=== PATIENT | male | born 1965 | race Caucasian/White ===

== ENCOUNTER → 2016-05-09 | Outpatient (CLI) | payer MEDICAID ==
--- NOTE | 2016-05-20 19:14 | ECHO ---
The echocardiogram report can be seen in this patient's EMR in the Reports section. [email or web address]
== END ==
LOC: MW.US 12:30
PROVIDERS: ATTEND Internal Medicine
DX: I48.91 Unspecified atrial fibrillation (principal)
CPT/HCPCS: 93306

== ENCOUNTER 2016-05-10 08:38 | Emergency (ER) | payer MEDICAID, OTHER ==
--- NOTE | 2016-05-10 08:56 | EDM.PDOC ---
ED HPI Trauma - General Chief Complaint: Lower Extremity Injury/Pain Stated Complaint: TWISTED RIGHT ANKLE Time Seen by Provider: 05/10/16 08:40 Source: Reports: Patient History Limitations: Reports: No limitations - History of Present Illness INITIAL COMMENTS - FREE TEXT/NARRATIVE: History of present illness: [] Patient twisted his right ankle 3 days ago with swelling, pain is not improving. Review of systems: As per history of present illness and below otherwise all systems reviewed and negative. Past medical history: As per history of present illness and as reviewed below otherwise noncontributory. Surgical history: As per history of present illness and as reviewed below otherwise noncontributory. Social history: No reported history of drug or alcohol abuse. Family history: As per history of present illness and as reviewed below otherwise noncontributory. Physical exam: General: Well developed, well nourished in NAD HEENT: Right ankle swelling and tenderness to palpation diffusely mostly lateral , normocephalic, pupils reactive, negative for conjunctival pallor or scleral icterus, mucous membranes moist, throat clear, neck supple, nontender, trachea midline. Lungs: Clear to auscultation, breath sounds equal bilaterally, chest nontender. Heart: S1S2, regular, negative for clicks, rubs, or JVD. Abdomen: Soft, nondistended, nontender. Negative for masses or hepatosplenomegaly. Negative for costovertebral tenderness. Pelvis: Stable nontender. Genitourinary: Deferred. Rectal: Deferred. Extremities: Atraumatic, negative for cords or calf pain. Neurovascular unremarkable. Neuro: Awake, alert, oriented. Cranial nerves II through XII unremarkable. Cerebellum unremarkable. Motor and sensory unremarkable throughout. Exam nonfocal. Diagnostics: [] X-ray shows no fracture Therapeutics: [] Impression: [] Right Ankle sprain Plan: [] Ice elevate followup with [facility] 2-3 weeks Motrin for pain tramadol for severe pain Definitive disposition and diagnosis as appropriate pending reevaluation and review of above. Allergies/ADRs: Allergies No Known Allergies Allergy (Verified 05/10/16 08:53) Home Medications: Ambulatory Orders Aspirin 81 mg PO DAILY 04/19/16 [Confirmed 05/10/16] Enoxaparin [Lovenox] 100 mg SQ BID 04/19/16 [Confirmed 05/10/16] Metoprolol Tartrate [Lopressor] 100 mg PO BID 04/19/16 [Confirmed 05/10/16] Thiamine Mononitrate [Vitamin B-1] 100 mg PO DAILY 04/19/16 [Confirmed 05/10/16] traMADol [Ultram] 50 mg PO Q8H PRN #12 tablet 05/10/16 Past Medical History HEENT History: Reports: None Cardiovascular History: Reports: Afib, Blood clots/VTE/DVT Respiratory History: Reports: Other (see below) Other Respiratory History: thinks he has Asthma Gastrointestinal History: Reports: None Genitourinary History: Reports: None Musculoskeletal History: Reports: None Neurological History: Reports: None Psychiatric History: Reports: None Endocrine/Metabolic History: Reports: None Hematologic History: Reports: None Immunologic History: Reports: None Oncologic (Cancer) History: Reports: None Dermatologic History: Reports: None - Infectious Disease History Infectious Disease History: Reports: None - Past Surgical History HEENT Surgical History: Reports: Other (see below) Other HEENT Surgeries/Procedures: facial reconstructive surgery 2006 Cardiovascular Surgical History: Reports: None Social & Family History - Family History Family Medical History: Noncontributory - Tobacco Use Smoking Status *Q: Current Every Day Smoker Years of Tobacco use: 21 Packs/Tins Daily: 0.4 Used Tobacco, but Quit: No Second Hand Smoke Exposure: Yes - Caffeine Use Caffeine Use: Reports: Coffee - Alcohol Use Days Per Week of Alcohol Use: 5 Number of Drinks Per Day: 4 Total Drinks Per Week: 20 - Recreational Drug Use Recreational Drug Use: No Review of Systems - Review of Systems Review Of Systems: See Below (See history of present illness) Trauma Exam - Physical Exam Exam: See Below (See history of present illness) Course - Vital Signs Last Recorded V/S: Last Vital Signs Temp 36.6 C 05/10/16 08:51 Pulse 88 05/10/16 08:51 Resp 16 05/10/16 08:51 BP 128/94 H 05/10/16 08:51 Pulse Ox 98 05/10/16 08:51 - Orders/Labs/Meds Orders: Active Orders 24 hr Category Date Time Status Orthopedic Device Education [RC] Click To Edit Care 05/10/16 09:42 Ordered Ankle Min 3V Rt [CR] Stat Exams 05/10/16 08:51 Taken Departure - Departure Time of Disposition: 09:47 Disposition: Home, Self-Care 01 Condition: good Clinical Impression: Right ankle sprain Qualifiers: Encounter type: initial encounter Involved ligament of ankle: unspecified ligament Qualified Code(s): S93.401A - Sprain of unspecified ligament of right ankle, initial encounter Prescriptions: traMADol [Ultram] 50 mg PO Q8H PRN #12 tablet PRN Reason: Pain Referrals: PCP,None [Primary Care Provider] - Forms: ED Department Discharge Additional Instructions: The following information is given to patients seen in the emergency department who are being discharged to home. This information is to outline your options for follow-up care. We provide all patients seen in our emergency department with a follow-up referral. The need for follow-up, as well as the timing and circumstances, are variable depending upon the specifics of your emergency department visit. If you don't have a primary care physician on staff, we will provide you with a referral. We always advise you to contact your personal physician following an emergency department visit to inform them of the circumstance of the visit and for follow-up with them and/or the need for any referrals to a consulting specialist. The emergency department will also refer you to a specialist when appropriate. This referral assures that you have the opportunity for follow-up care with a specialist. All of these measure are taken in an effort to provide you with optimal care, which includes your follow-up. Under all circumstances we always encourage you to contact your private physician who remains a resource for coordinating your care. When calling for follow-up care, please make the office aware that this follow-up is from your recent emergency room visit. If for any reason you are refused follow-up, please contact the [facility] Emergency Department at and asked to speak to the emergency department charge nurse. Tramadol 50 mg q. 812 tablets no refills Ice elevate Motrin for pain [facility] [address] [place] [id number] - My Orders Last 24 Hours: My Active Orders 05/10/16 08:51 Ankle Min 3V Rt [CR] Stat 05/10/16 09:42 Orthopedic Device Education [RC] Click To Edit - Assessment/Plan Last 24 Hours: My Active Orders 05/10/16 08:51 Ankle Min 3V Rt [CR] Stat 05/10/16 09:42 Orthopedic Device Education [RC] Click To Edit
[2016-05-10 10:54] VITALS: BP 124/72
--- NOTE | 2016-05-12 19:59 | CR ---
EXAM DATE: 05/10/16 PATIENT'S AGE: 50 Patient: LILA GUERRA Facility: [place], [place] Site . Site : [id number] Study: XRay Extremity Right [id number]/11/2017 9:19:55 AM Ordering Physician: Morris Mtz Final Report: Indication: Right ankle twisting injury. Technique: Three views of the right ankle. Comparison: None. Findings: Mild generalized soft tissue swelling, greatest laterally. No fracture or other abnormality. Impression: Right ankle sprain. Dictated by Ammon Griffiths MD @ May 10 2016 9:23AM (Electronic Signature) Report Signed by Proxy and Original Signed Document filed in the Medical Record. [facility]
== END 2016-05-10 09:56 | disposition home or self-care (01) ==
LOC: MW.ED 08:38
DX: S93.401A Sprain of unspecified ligament of right ankle, initial encounter (principal); I48.91 Unspecified atrial fibrillation; F17.210 Nicotine dependence, cigarettes, uncomplicated; X50.1XXA Overexertion from prolonged static or awkward postures, initial encounter
CPT/HCPCS: 73610-26-RT; 73610-RT; 99283

== ENCOUNTER 2016-05-20 12:09 | Emergency (ER) | payer MEDICAID, OTHER ==
[2016-05-20] MEDS ORDERED: Sodium Chloride 0.9% 2.5 ML Syringe FLUSH PRN (12:42)
[2016-05-20] MEDS ORDERED: Sodium Chloride 0.9% 10 ML Syringe FLUSH PRN (12:42)
[2016-05-20] MEDS ORDERED: Aspirin 81 MG Tab.Chew PO ONE (12:42)
[2016-05-20] MEDS ORDERED: Metoprolol Tartrate 5 MG/5 ML SDV IVPUSH ONE (12:42)
--- NOTE | 2016-05-20 12:44 | EDM.PDOC ---
ED HPI GENERAL MEDICAL PROBLEM - General Stated Complaint: HEART COMPLICATIONS Time Seen by Provider: 05/20/16 12:35 - History of Present Illness INITIAL COMMENTS - FREE TEXT/NARRATIVE: HISTORY AND PHYSICAL: History of present illness: The patient is a 50-year-old male with a history of A. fib since 1999 and is currently being followed by our operations management professionals who also has a history of DVTs and is on Lovenox as well as metoprolol; the patient presents today because over the last day or so he has been having episodes of racing heart rate without chest pain shortness of breath diaphoresis or dizziness. According to the patient he was treated for his DVT in [place] and is currently on Lovenox and plans to switch to Xarelto going forward but he has to do a surgery for a lesion on his: so they were holding off doing that until after the procedure. He states compliance with his Lovenox as well as with his metoprolol and he says he has had episodes of A. fib with RVR in the past but never to this intensity. He has not had it recently until the last couple of days. He says that nothing particular triggers and he has had no fever chills upper respiratory symptoms and is eating and drinking normally. The patient has an appointment tomorrow with a operations management professionals here but he was concerned about the episodes of rapid heart rate. He says at home it we get up to 140. Review of systems: As per history of present illness and below otherwise all systems reviewed and negative. Past medical history: As per history of present illness and as reviewed below otherwise noncontributory. Surgical history: As per history of present illness and as reviewed below otherwise noncontributory. Social history: No reported history of drug or alcohol abuse. Family history: As per history of present illness and as reviewed below otherwise noncontributory. Physical exam: General: Well-developed well-nourished man who is nontoxic vital signs of been reviewed by me. His heart rate is variable ranging anywhere from the 70s up to 110s on my evaluation HEENT: Atraumatic, normocephalic, pupils reactive, negative for conjunctival pallor or scleral icterus, mucous membranes moist, throat clear, neck supple, nontender, trachea midline. Lungs: Clear to auscultation, breath sounds equal bilaterally, chest nontender. Heart: S1S2, variable rate and irregularly irregular rhythm, negative for clicks , rubs, or JVD. Abdomen: Soft, nondistended, nontender. Negative for masses or hepatosplenomegaly. Negative for costovertebral tenderness. Pelvis: Stable nontender. Genitourinary: Deferred. Rectal: Deferred. Extremities: Atraumatic, negative for cords or calf pain. Neurovascular unremarkable. No pedal edema or leg asymmetry Neuro: Awake, alert, oriented. Cranial nerves II through XII unremarkable. Cerebellum unremarkable. Motor and sensory unremarkable throughout. Exam nonfocal. Diagnostics: EKG CBC CMP chest x-ray troponin INR Therapeutics: IV O2 monitor aspirin Lopressor magnesium 1410: Dr Holloway in the ER and has seen EKGs and is evaluating the patient for disposition. 1420: Dr Holloway has recommended that he increase his metoprolol to 3 times a day and he will see him tomorrow in the clinic. He agrees with IV magnesium and discharge home Impression: Palpitations, A. fib with RVR history of same; mild hypomagnesemia Definitive disposition and diagnosis as appropriate pending reevaluation and review of above. - Related Data Allergies Allergy/AdvReac Type Severity Reaction Status Date / Time No Known Allergies Allergy Verified 05/20/16 13:06 Home Meds: Home Meds Aspirin 81 mg PO DAILY 04/19/16 [History] Enoxaparin [Lovenox] 100 mg SQ BID 04/19/16 [History] Metoprolol Tartrate [Lopressor] 100 mg PO BID 04/19/16 [History] Past Medical History HEENT History: Reports: None Cardiovascular History: Reports: Afib, Blood clots/VTE/DVT Respiratory History: Reports: Other (see below) Other Respiratory History: thinks he has Asthma Gastrointestinal History: Reports: None Genitourinary History: Reports: None Musculoskeletal History: Reports: None Neurological History: Reports: None Psychiatric History: Reports: None Endocrine/Metabolic History: Reports: None Hematologic History: Reports: None Immunologic History: Reports: None Oncologic (Cancer) History: Reports: None Dermatologic History: Reports: None - Infectious Disease History Infectious Disease History: Reports: None - Past Surgical History HEENT Surgical History: Reports: Other (see below) Other HEENT Surgeries/Procedures: facial reconstructive surgery 2006 Cardiovascular Surgical History: Reports: None Social & Family History - Family History Family Medical History: Noncontributory - Tobacco Use Smoking Status *Q: Current Every Day Smoker Years of Tobacco use: 21 Packs/Tins Daily: 0.4 Used Tobacco, but Quit: No Second Hand Smoke Exposure: Yes - Caffeine Use Caffeine Use: Reports: Coffee - Alcohol Use Days Per Week of Alcohol Use: 5 Number of Drinks Per Day: 4 Total Drinks Per Week: 20 - Recreational Drug Use Recreational Drug Use: No ED ROS GENERAL - Review of Systems Review Of Systems: ROS reveals no pertinent complaints other than HPI. ED EXAM, GENERAL - Physical Exam Exam: See Below (see dictation) Course - Vital Signs Last Recorded V/S: Last Vital Signs Temp 36.8 C 05/20/16 14:02 Pulse 118 H 05/20/16 14:02 Resp 16 05/20/16 14:02 BP 132/95 H 05/20/16 14:02 Pulse Ox 98 05/20/16 14:02 - Orders/Labs/Meds Orders: Active Orders 24 hr Category Date Time Status Cardiac Monitoring [RC] . DIRECTED Care 05/20/16 12:42 Active EKG Documentation Completion [RC] STAT Care 05/20/16 12:42 Active Oxygen Therapy, ED [RC] ASDIRECTED Care 05/20/16 12:42 Active Pulse Oximetry [RC] ASDIRECTED Care 05/20/16 12:42 Active Magnesium Sulfate [Magnesium Sulfate 50%] 1 gm Med 05/20/16 14:15 Active Sodium Chloride 0.9% [Normal Saline] 50 ml IV ONETIME Sodium Chloride 0.9% [Saline Flush] Med 05/20/16 12:42 Active 10 ml FLUSH ASDIRECTED PRN Sodium Chloride 0.9% [Saline Flush] Med 05/20/16 12:42 Active 2.5 ml FLUSH ASDIRECTED PRN Saline Lock Insert [OM.PC] Stat Oth 05/20/16 12:42 Ordered Medication Orders Magnesium Sulfate 1 gm/ Sodium (Chloride) 52 mls @ 104 mls/hr IV ONETIME ONE Stop: 05/20/16 14:44 Last Admin: 05/20/16 14:23 Dose: 104 mls/hr Sodium Chloride (Saline Flush) 10 ml FLUSH ASDIRECTED PRN PRN Reason: Keep Vein Open Last Admin: 05/20/16 12:56 Dose: 10 ml Sodium Chloride (Saline Flush) 2.5 ml FLUSH ASDIRECTED PRN PRN Reason: Keep Vein Open Last Admin: 05/20/16 12:56 Dose: 2.5 ml Labs: Laboratory Tests 05/20/16 05/20/16 05/20/16 Range/Units 12:31 12:31 12:31 WBC 7.33 (4.0-11.0) K/uL RBC 3.40 L (4.50-5.90) M/uL Hgb 11.4 L (13.0-17.0) g/dL Hct 34.0 L (38.0-50.0) % MCV 100.0 H (80.0-98.0) fL MCH 33.5 H (27.0-32.0) pg MCHC 33.5 (31.0-37.0) g/dL RDW Std Deviation 47.0 (28.0-62.0) fl RDW Coeff of Jamel 13 (11.0-15.0) % Plt Count 248 (150-400) K/uL MPV 8.40 (7.40-12.00) fL Neut % (Auto) 71.2 (48.0-80.0) % Lymph % (Auto) 20.2 (16.0-40.0) % Ogle % (Auto) 7.8 (0.0-15.0) % Eos % (Auto) 0.5 (0.0-7.0) % Baso % (Auto) 0.3 (0.0-1.5) % Neut # 5.2 (1.4-5.7) K/uL Lymph # 1.5 (0.6-2.4) K/uL Ogle # 0.6 (0.0-0.8) K/uL Eos # 0.0 (0.0-0.7) K/uL Baso # 0.0 (0.0-0.1) K/uL Nucleated RBC % 0.0 /100WBC Nucleated RBCs # 0 K/uL INR 1.17 H (0.86-1.11) Sodium 145 (136-146) mmol/L Potassium 3.8 (3.5-5.1) mmol/L Chloride 111 H (98-110) mmol/L Carbon Dioxide 27 (21-31) mmol/L BUN 8 (6.0-23.0) mg/dL Creatinine 0.8 (0.6-1.5) mg/dL Est Cr Clr Drug Dosing 114.06 mL/min Estimated GFR (MDRD) > 60.0 ml/min Glucose 107 (60-110) mg/dL Calcium 8.1 L (8.8-10.8) mg/dL Magnesium (1.5-2.3) mEq/L Total Bilirubin 0.4 (0.1-1.5) mg/dL AST 35 (5-40) IU/L ALT 32 (8-54) IU/L Alkaline Phosphatase 73 (40-150) Troponin I (0.0-0.29) NG/ML Total Protein 5.9 L (6.0-8.0) g/dL Albumin 3.2 L (3.5-5.0) g/dL Globulin 2.7 (2.0-3.5) g/dL Albumin/Globulin Ratio 1.2 L (1.3-2.8) 05/20/16 05/20/16 Range/Units 12:31 12:54 WBC (4.0-11.0) K/uL RBC (4.50-5.90) M/uL Hgb (13.0-17.0) g/dL Hct (38.0-50.0) % MCV (80.0-98.0) fL MCH (27.0-32.0) pg MCHC (31.0-37.0) g/dL RDW Std Deviation (28.0-62.0) fl RDW Coeff of Jamel (11.0-15.0) % Plt Count (150-400) K/uL MPV (7.40-12.00) fL Neut % (Auto) (48.0-80.0) % Lymph % (Auto) (16.0-40.0) % Ogle % (Auto) (0.0-15.0) % Eos % (Auto) (0.0-7.0) % Baso % (Auto) (0.0-1.5) % Neut # (1.4-5.7) K/uL Lymph # (0.6-2.4) K/uL Ogle # (0.0-0.8) K/uL Eos # (0.0-0.7) K/uL Baso # (0.0-0.1) K/uL Nucleated RBC % /100WBC Nucleated RBCs # K/uL INR (0.86-1.11) Sodium (136-146) mmol/L Potassium (3.5-5.1) mmol/L Chloride (98-110) mmol/L Carbon Dioxide (21-31) mmol/L BUN (6.0-23.0) mg/dL Creatinine (0.6-1.5) mg/dL Est Cr Clr Drug Dosing mL/min Estimated GFR (MDRD) ml/min Glucose (60-110) mg/dL Calcium (8.8-10.8) mg/dL Magnesium 1.3 L (1.5-2.3) mEq/L Total Bilirubin (0.1-1.5) mg/dL AST (5-40) IU/L ALT (8-54) IU/L Alkaline Phosphatase (40-150) Troponin I < 0.10 (0.0-0.29) NG/ML Total Protein (6.0-8.0) g/dL Albumin (3.5-5.0) g/dL Globulin (2.0-3.5) g/dL Albumin/Globulin Ratio (1.3-2.8) Meds: Medications Generic Name Dose Route Start Last Admin Trade Name Freq PRN Reason Stop Dose Admin Magnesium Sulfate 1 gm/ Sodium 52 mls @ 104 mls/hr 05/20/16 14:15 05/20/16 14 :23 Chloride IV 05/20/16 14:44 104 mls/hr ONETIME ONE Administration Sodium Chloride 10 ml 05/20/16 12:42 05/20/16 12:56 Saline Flush FLUSH 10 ml ASDIRECTED PRN Administration Keep Vein Open Sodium Chloride 2.5 ml 05/20/16 12:42 05/20/16 12:56 Saline Flush FLUSH 2.5 ml ASDIRECTED PRN Administration Keep Vein Open Discontinued Medications Generic Name Dose Route Start Last Admin Trade Name Freq PRN Reason Stop Dose Admin Aspirin 324 mg 05/20/16 12:42 05/20/16 12:55 Aspirin PO 05/20/16 12:43 324 mg ONETIME ONE Administration Magnesium Sulfate 1 gm/ Sodium 52 mls @ 104 mls/hr 05/20/16 14:15 Chloride IV 05/20/16 14:44 ONETIME ONE Magnesium Sulfate 1 gm 05/20/16 13:50 Magnesium Sulfate 50% IV 05/20/16 13:51 ONETIME ONE Magnesium Sulfate 1 gm 05/20/16 14:00 Magnesium Sulfate 50% IV 05/20/16 14:01 ONETIME ONE Metoprolol Tartrate 5 mg 05/20/16 12:42 05/20/16 12:56 Lopressor IVPUSH 05/20/16 12:43 5 mg ONETIME ONE Administration Departure - Departure Time of Disposition: 14:31 Disposition: Home, Self-Care 01 Condition: good Clinical Impression: Atrial fibrillation Qualifiers: Atrial fibrillation type: unspecified Qualified Code(s): I48.91 - Unspecified atrial fibrillation Referrals: PCP,None [Primary Care Provider] - Additional Instructions: The following information is given to patients seen in the emergency department who are being discharged to home. This information is to outline your options for follow-up care. We provide all patients seen in our emergency department with a follow-up referral. The need for follow-up, as well as the timing and circumstances, are variable depending upon the specifics of your emergency department visit. If you don't have a primary care physician on staff, we will provide you with a referral. We always advise you to contact your personal physician following an emergency department visit to inform them of the circumstance of the visit and for follow-up with them and/or the need for any referrals to a consulting specialist. The emergency department will also refer you to a specialist when appropriate. This referral assures that you have the opportunity for followup care with a specialist. All of these measure are taken in an effort to provide you with optimal care, which includes your followup. Under all circumstances we always encourage you to contact your private physician who remains a resource for coordinating your care. When calling for followup care, please make the office aware that this follow-up is from your recent emergency room visit. If for any reason you are refused follow-up, please contact the [facility] emergency department at and ask to speak to the emergency department charge nurse. [facility] Primary care- [place] [address] Please keep your appointment tomorrow with a operations management professionals Dr. Jose; increased her metoprolol 2 times a day to 3 times a day and return to ER as needed and as discussed. - My Orders Last 24 Hours: My Active Orders 05/20/16 12:42 Cardiac Monitoring [RC] . DIRECTED EKG Documentation Completion [RC] STAT Oxygen Therapy, ED [RC] ASDIRECTED Pulse Oximetry [RC] ASDIRECTED Sodium Chloride 0.9% [Saline Flush] 10 ml FLUSH ASDIRECTED PRN Sodium Chloride 0.9% [Saline Flush] 2.5 ml FLUSH ASDIRECTED PRN Saline Lock Insert [OM.PC] Stat 05/20/16 14:15 Magnesium Sulfate [Magnesium Sulfate 50%] 1 gm Sodium Chloride 0.9% [Normal Saline] 50 ml IV ONETIME - Assessment/Plan Last 24 Hours: My Active Orders 05/20/16 12:42 Cardiac Monitoring [RC] . DIRECTED EKG Documentation Completion [RC] STAT Oxygen Therapy, ED [RC] ASDIRECTED Pulse Oximetry [RC] ASDIRECTED Sodium Chloride 0.9% [Saline Flush] 10 ml FLUSH ASDIRECTED PRN Sodium Chloride 0.9% [Saline Flush] 2.5 ml FLUSH ASDIRECTED PRN Saline Lock Insert [OM.PC] Stat 05/20/16 14:15 Magnesium Sulfate [Magnesium Sulfate 50%] 1 gm Sodium Chloride 0.9% [Normal Saline] 50 ml IV ONETIME
[2016-05-20 13:25] LABS: CHLORIDE,CL 111 mmol/L (98-110); SODIUM,NA 145 mmol/L (136-146)
--- NOTE | 2016-05-20 13:35 | CR ---
EXAMINATION: Portable chest radiograph. HISTORY: Shortness of breath. FINDINGS: The trachea is midline. The cardiomediastinal silhouette is within normal limits. No pulmonary infil trates, effusions or pneumothorax. Osseous structures appear unremarkable. IMPRESSION: No acute cardiopulmonary process.
[2016-05-20] MEDS ORDERED: Magnesium Sulfate (4.06 MEQ/ML) 1 GM/2 ML SDV IV ONE ×2 (13:50→14:00)
[2016-05-20 19:33] VITALS: BP 140/90
== END 2016-05-20 15:06 | disposition home or self-care (01) ==
LOC: MW.ED 12:09
DX: I48.91 Unspecified atrial fibrillation (principal); E83.42 Hypomagnesemia; F17.210 Nicotine dependence, cigarettes, uncomplicated; Z79.82 Long term (current) use of aspirin; Z79.899 Other long term (current) drug therapy
CPT/HCPCS: 71010; 80053; 83735; 84484; 85025; 85610; 93005; 96365; 96375; 99285; A9270; J3475; J7050; 99284

== ENCOUNTER 2016-05-30 08:10 | Observation (INO) | payer MEDICAID ==
[2016-05-30] MEDS ORDERED: Diltiazem 25 MG/5 ML SDV IVPUSH ONE ×3 (08:20→16:57)
--- NOTE | 2016-05-30 08:23 | EDM.PDOC ---
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 He missed two doses of lopressor yesteday and he did not take lovenox once yesterday. He is experiencing chest discomfort today. He has been having diarhea x 1 week. He does not have fever, chills, n/v, abdominal pain, back pain or other symptoms. He has a history of DVT and PE. He is a daily smoker. Review of systems: As per history of present illness and below otherwise all systems reviewed and negative. Past medical history: As per history of present illness and as reviewed below otherwise noncontributory. Surgical history: As per history of present illness and as reviewed below otherwise noncontributory. Social history: No reported history of drug or alcohol abuse. Family history: As per history of present illness and as reviewed below otherwise noncontributory. Physical exam: General: Well developed, well nourished in NAD HEENT: Atraumatic, normocephalic, pupils reactive, negative for conjunctival pallor or scleral icterus, mucous membranes moist, throat clear, neck supple, nontender, trachea midline. Lungs: Clear to auscultation, breath sounds equal bilaterally, chest nontender. Heart: S1S2, irrregular, negative for clicks, rubs, or JVD. Abdomen: Soft, nondistended, nontender. Negative for masses or hepatosplenomegaly. Negative for costovertebral tenderness. Pelvis: Stable nontender. Genitourinary: Deferred. Rectal: Deferred. Extremities: Atraumatic, negative for cords or calf pain. Neurovascular unremarkable. Neuro: Awake, alert, oriented. Cranial nerves II through XII unremarkable. Cerebellum unremarkable. Motor and sensory unremarkable throughout. Exam nonfocal. Diagnostics: [EKG: atrial fib at rate 160's] Therapeutics: [IVP diltiazem 25 x 1, KCL po 40 meq x1] Impression: [Atrial fib with RVR atypical chest pain] Plan: [admit for observation: Dr. Villatoro accepted the patient.] Definitive disposition and diagnosis as appropriate pending reevaluation and review of above. - Related Data Allergies/ADRs: Allergies Allergy/AdvReac Type Severity Reaction Status Date / Time No Known Allergies Allergy Verified 05/30/16 08:16 Home Meds: Home Meds Aspirin 81 mg PO DAILY 04/19/16 [History] Enoxaparin [Lovenox] 100 mg SQ BID 04/19/16 [History] Metoprolol Tartrate [Lopressor] 100 mg PO TID 04/19/16 [History] Past Medical History HEENT History: Reports: None Cardiovascular History: Reports: Afib, Blood clots/VTE/DVT Respiratory History: Reports: Other (see below) Other Respiratory History: thinks he has Asthma Gastrointestinal History: Reports: None Genitourinary History: Reports: None Musculoskeletal History: Reports: None Neurological History: Reports: None Psychiatric History: Reports: None Endocrine/Metabolic History: Reports: None Hematologic History: Reports: None Immunologic History: Reports: None Oncologic (Cancer) History: Reports: None Dermatologic History: Reports: None - Infectious Disease History Infectious Disease History: Reports: None - Past Surgical History HEENT Surgical History: Reports: Other (see below) Other HEENT Surgeries/Procedures: facial reconstructive surgery 2006 Cardiovascular Surgical History: Reports: None Social & Family History - Family History Family Medical History: Noncontributory - Tobacco Use Smoking Status *Q: Current Every Day Smoker Years of Tobacco use: 21 Packs/Tins Daily: 0.4 Used Tobacco, but Quit: No Second Hand Smoke Exposure: Yes - Caffeine Use Caffeine Use: Reports: Coffee - Alcohol Use Days Per Week of Alcohol Use: 5 Number of Drinks Per Day: 4 Total Drinks Per Week: 20 - Recreational Drug Use Recreational Drug Use: No ED ROS GENERAL - Review of Systems Review Of Systems: See Below (History of present illness) ED EXAM, GENERAL - Physical Exam Exam: See Below (The history of present illness) Course - Vital Signs Last Recorded V/S: Last Vital Signs Temp 98.3 F 05/30/16 08:17 Pulse 105 H 05/30/16 08:34 Resp 16 05/30/16 08:34 BP 154/98 H 05/30/16 08:34 Pulse Ox 98 05/30/16 08:34 - Orders/Labs/Meds Orders: Active Orders 24 hr Category Date Time Status EKG Documentation Completion [RC] STAT Care 05/30/16 08:15 Active Oxygen Therapy [RC] ASDIRECTED Care 05/30/16 08:15 Active Labs: Laboratory Tests 05/30/16 05/30/16 05/30/16 Range/Units 08:29 08:29 08:29 WBC 7.70 (4.0-11.0) K/uL RBC 3.64 L (4.50-5.90) M/uL Hgb 12.2 L (13.0-17.0) g/dL Hct 36.6 L (38.0-50.0) % MCV 100.5 H (80.0-98.0) fL MCH 33.5 H (27.0-32.0) pg MCHC 33.3 (31.0-37.0) g/dL RDW Std Deviation 50.6 (28.0-62.0) fl RDW Coeff of Jamel 14 (11.0-15.0) % Plt Count 195 (150-400) K/uL MPV 8.80 (7.40-12.00) fL Neut % (Auto) 68.4 (48.0-80.0) % Lymph % (Auto) 23.1 (16.0-40.0) % Piute % (Auto) 8.1 (0.0-15.0) % Eos % (Auto) 0.3 (0.0-7.0) % Baso % (Auto) 0.1 (0.0-1.5) % Neut # (Auto) 5.3 (1.4-5.7) K/uL Lymph # (Auto) 1.8 (0.6-2.4) K/uL Piute # (Auto) 0.6 (0.0-0.8) K/uL Eos # (Auto) 0.0 (0.0-0.7) K/uL Baso # (Auto) 0.0 (0.0-0.1) K/uL Nucleated RBC % 0.0 /100WBC Nucleated RBCs # 0 K/uL Sodium 146 (136-146) mmol/L Potassium 3.1 L (3.5-5.1) mmol/L Chloride 113 H (98-110) mmol/L Carbon Dioxide 19 L (21-31) mmol/L BUN 9 (6.0-23.0) mg/dL Creatinine 0.8 (0.6-1.5) mg/dL Est Cr Clr Drug Dosing 121.25 mL/min Estimated GFR (MDRD) > 60.0 ml/min Glucose 112 H (60-110) mg/dL Calcium 9.0 (8.8-10.8) mg/dL Magnesium (1.5-2.3) mEq/L Total Bilirubin 0.6 (0.1-1.5) mg/dL AST 20 (5-40) IU/L ALT 23 (8-54) IU/L Alkaline Phosphatase 92 (40-150) Troponin I < 0.10 (0.0-0.29) NG/ML Total Protein 6.6 (6.0-8.0) g/dL Albumin 3.8 (3.5-5.0) g/dL Globulin 2.8 (2.0-3.5) g/dL Albumin/Globulin Ratio 1.4 (1.3-2.8) 05/30/16 Range/Units 08:29 WBC (4.0-11.0) K/uL RBC (4.50-5.90) M/uL Hgb (13.0-17.0) g/dL Hct (38.0-50.0) % MCV (80.0-98.0) fL MCH (27.0-32.0) pg MCHC (31.0-37.0) g/dL RDW Std Deviation (28.0-62.0) fl RDW Coeff of Jamel (11.0-15.0) % Plt Count (150-400) K/uL MPV (7.40-12.00) fL Neut % (Auto) (48.0-80.0) % Lymph % (Auto) (16.0-40.0) % Piute % (Auto) (0.0-15.0) % Eos % (Auto) (0.0-7.0) % Baso % (Auto) (0.0-1.5) % Neut # (Auto) (1.4-5.7) K/uL Lymph # (Auto) (0.6-2.4) K/uL Piute # (Auto) (0.0-0.8) K/uL Eos # (Auto) (0.0-0.7) K/uL Baso # (Auto) (0.0-0.1) K/uL Nucleated RBC % /100WBC Nucleated RBCs # K/uL Sodium (136-146) mmol/L Potassium (3.5-5.1) mmol/L Chloride (98-110) mmol/L Carbon Dioxide (21-31) mmol/L BUN (6.0-23.0) mg/dL Creatinine (0.6-1.5) mg/dL Est Cr Clr Drug Dosing mL/min Estimated GFR (MDRD) ml/min Glucose (60-110) mg/dL Calcium (8.8-10.8) mg/dL Magnesium 1.6 (1.5-2.3) mEq/L Total Bilirubin (0.1-1.5) mg/dL AST (5-40) IU/L ALT (8-54) IU/L Alkaline Phosphatase (40-150) Troponin I (0.0-0.29) NG/ML Total Protein (6.0-8.0) g/dL Albumin (3.5-5.0) g/dL Globulin (2.0-3.5) g/dL Albumin/Globulin Ratio (1.3-2.8) Meds: Medications Discontinued Medications Generic Name Dose Route Start Last Admin Trade Name Freq PRN Reason Stop Dose Admin Diltiazem HCl 25 mg 05/30/16 08:20 05/30/16 08:32 Diltiazem IVPUSH 05/30/16 08:21 25 mg ONETIME ONE Administration Potassium Chloride 40 meq 05/30/16 09:22 Potassium Chloride PO 05/30/16 09:23 ONETIME ONE Potassium Chloride 40 meq 05/30/16 09:37 05/30/16 09:39 Klor-Con M20 PO 05/30/16 09:38 40 meq ONETIME ONE Administration Potassium Chloride Confirm 05/30/16 09:35 05/30/16 09:40 Klor-Con M20 Administered 05/30/16 09:36 Not Given Dose 40 meq .ROUTE .STK-MED ONE Departure - Departure Time of Disposition: 09:49 Disposition: Admitted As Inpatient 66 Condition: good Clinical Impression: Atrial fibrillation Qualifiers: Atrial fibrillation type: unspecified Qualified Code(s): I48.91 - Unspecified atrial fibrillation Forms: ED Department Discharge
--- NOTE | 2016-05-30 08:43 | CR ---
EXAMINATION: Portable chest radiograph. HISTORY: Chest pain. FINDINGS: The trachea is midline. The cardiomediastinal silhouette is within normal limits. No pulmonary infil trates, effusions or pneumothorax. Osseous structures appear unremarkable. IMPRESSION: No acute cardiopulmonary process.
[2016-05-30 09:04] LABS: CHLORIDE,CL 113 mmol/L (98-110); SODIUM,NA 146 mmol/L (136-146)
[2016-05-30] MEDS ORDERED: Potassium Chloride 10% 20 MEQ/15 ML Soln 30 ML UD Cup PO ONE (09:22)
[2016-05-30] MEDS ORDERED: Potassium Chloride 20 MEQ Tab.ER ONE (09:35)
[2016-05-30] MEDS ORDERED: Potassium Chloride 20 MEQ Tab.ER PO ONE (09:37)
[2016-05-30] MEDS ORDERED: Diltiazem 100 MG in Sodium Chloride 0.9% 100 ML IV SCH (14:15)
--- NOTE | 2016-05-30 14:24 | PCM.HP ---
H&P History of Present Illness - General Date of Service: 05/30/16 Admit Problem/Dx: atrial fibrillation with high ventricular rate Source of Information: Patient, Old records History Limitations: Reports: Other (anxious) - History of Present Illness Initial Comments - Free Text/Narative: History of PE and a fib past 6mo. Has been stressed lately facing surgery for some kind of anal lesion. drinking and smoking more missed 1 possibly 2 doses of metoprolol Preop stress test this morning cancelled for high heart rate Onset of Symptoms: Reports: gradual Duration of Symptoms: Reports: Day(s): Quality: Reports: Other (palpitation and vague non pleuritic precordial jabbing sensation) Severity: moderate Improves with: Reports: None Worsens with: Reports: None Associated Symptoms: Reports: rash (says he is breaking out with boils lately) left chest discomfort Pain Score (Numeric/FACES): 6 - Related Data Allergies/Adverse Reactions: Allergies Allergy/AdvReac Type Severity Reaction Status Date / Time No Known Allergies Allergy Verified 05/30/16 08:16 Home Medications: Home Meds Aspirin 81 mg PO DAILY 04/19/16 [History] Enoxaparin [Lovenox] 100 mg SQ BID 04/19/16 [History] Metoprolol Tartrate [Lopressor] 100 mg PO TID 04/19/16 [History] Past Medical History HEENT History: Reports: None Cardiovascular History: Reports: Afib, Blood clots/VTE/DVT, Other (see below) ( CHF with massive edema 12/15 echo shows 50-55 % EF) Respiratory History: Reports: Other (see below) Other Respiratory History: thinks he has Asthma Gastrointestinal History: Reports: None Genitourinary History: Reports: None Musculoskeletal History: Reports: None, Gout Other Musculoskeletal History: recent sprained ankle Neurological History: Reports: None Psychiatric History: Reports: Other (see below) Other Psychiatric History: several bouts of detox for substance abuse Endocrine/Metabolic History: Reports: None Hematologic History: Reports: None Immunologic History: Reports: None Oncologic (Cancer) History: Reports: None Dermatologic History: Reports: None - Infectious Disease History Infectious Disease History: Reports: None - Past Surgical History Head Surgeries/Procedures: Reports: None HEENT Surgical History: Reports: Other (see below) Other HEENT Surgeries/Procedures: facial reconstructive surgery 2006 Cardiovascular Surgical History: Reports: None GI Surgical History: Reports: Other (see below) (blood clot retrieval for L DVT) Social & Family History - Family History Family Medical History: Noncontributory Other GI Family History: sister with partial gastrectomy for cancer - Tobacco Use Smoking Status *Q: Current Every Day Smoker Tobacco Use Within Last Twelve Months: Cigarettes Years of Tobacco use: 5 Packs/Tins Daily: 0.5 Used Tobacco, but Quit: No Second Hand Smoke Exposure: Yes Source of Second Hand Smoke Exposure: mother - Caffeine Use Caffeine Use: Reports: Coffee - Alcohol Use Days Per Week of Alcohol Use: 4 (probably more) Number of Drinks Per Day: 2 Total Drinks Per Week: 8 Total Drinks Per Week Comment: hard to quantitate beer plus 1 and 1/2 bottles hard liquor Date of Last Drink: 05/28/16 Date/Time of Last Drink Comment: yesterday Alcohol Use in Last Twelve Months: Yes Alcohol Use Frequency: Daily - Recreational Drug Use Recreational Drug Use: Yes Drug Use in Last 12 Months: No Recreational Drug Type: Reports: Amphetamines (Speed) Other Recreational Drug Type: marihuana Recreational Drug Use Frequency: Not Used In Over 6 Months Recreational Drug Route: Reports: Inhaled - Living Situation & Occupation Living situation: Reports: other ( has adult daughter,) Occupation: employed (worked as cook til injury to ankle) H&P Review of Systems - Review of Systems: Review Of Systems: See Below General: Reports: no symptoms HEENT: Reports: no symptoms Pulmonary: Reports: No Symptoms Cardiovascular: Reports: chest pain, palpitations Gastrointestinal: Reports: Bloody stool (occasional streaks), Diarrhea (started recently with unformed, sometimes watery stool), Other (rectal pain from"lesion ") Genitourinary: Reports: no symptoms Musculoskeletal: Reports: foot pain (sparined R ankle, still wears brace) Skin: Reports: other (desribes "boils" on his arms ) Psychiatric: Reports: anxiety Neurological: Reports: No Symptoms Hematologic/Lymphatic: Reports: no symptoms Immunologic: Reports: no symptoms Exam - Exam Exam: See Below - Vital Signs Vital Signs: Last Vital Signs Temp 36.8 C 05/30/16 08:17 Pulse 80 05/30/16 11:22 Resp 16 05/30/16 08:34 BP 141/101 H 05/30/16 11:22 Pulse Ox 98 05/30/16 08:34 Weight: 89.7 kg - Exam General: alert, mild distress, other (anxious) HEENT: Other ( mild edema and moderate erythema of pharynx) Neck: supple, trachea midline, 2 Lungs: Clear to auscultation, Normal respiratory effort Cardiovascular: irregular rhythm, tachycardia Abdomen: normal bowel sounds, soft (Male) Exam: Deferred Rectal (Males) Exam: Deferred Back Exam: normal inspection Extremities: normal inspection, other (canvas splint on R) Skin: warm, dry, intact Neurological: cranial nerves intact Neuro Extensive - Mental Status: other (anxious ,rather circumstantial anamnesis ) Neuro Extensive - Motor, Sensory, Reflexes: CN II-XII intact, normal gait, normal reflexes Psychiatric: alert, normal affect, normal mood - Patient Data Result Diagrams: 05/30/16 08:29 05/30/16 08:29 *Q Meaningful Use (ADM) - VTE *Q VTE Criteria *Q: - VTE Risk Assess *Q Each Risk Factor Represents 1 Point: Minor Surgery Planned Total Score 1 Point Risk Factors: 1 Each Risk Factor Represents 2 Points: None Total Score 2 Point Risk Factors: 0 Each Risk Factor Represents 3 Points: History Superficial Venous Thrombosis, DVT or PE Total Score 3 Point Risk Factors: 3 - Stroke *Q Stroke Criteria *Q: - AMI *Q AMI Criteria *Q: Problem List Initiated/Reviewed/Updated: Yes Orders Last 24hrs: Active Orders 24 hr Category Date Time Status Telemetry Monitoring [Cardiac Monitoring] [RC] . Care 05/30/16 09:45 Active DIRECTED Heart Healthy Diet [DIET] Diet 05/30/16 Dinner Active Diltiazem 100 MG in NS Adv@ 5 MG/HR(100ml) Med 05/30/16 14:15 Ordered Diltiazem [Cardizem] 100 mg Sodium Chloride 0.9% [Normal Saline] 100 ml IV TITRATE Medication Orders Diltiazem HCl 100 mg/ Sodium (Chloride) 100 mls @ 5 mls/hr IV TITRATE TEENA; 5 MG /HR PRN Reason: Protocol Assessment/Plan Comment:: onferred with Dr Duncan, who will see will continue metoprolol, probably titrate up the cardizem maintain lovenox bid
[2016-05-30] MEDS ORDERED: Diltiazem 120 MG Cap.CD PO SCH ×2 (16:00→17:00)
[2016-05-30] MEDS: Metoprolol Tartrate 50 MG Tab PO SCH ×2 (17:12→23:04)
[2016-05-30] MEDS ORDERED: LORazepam 1 MG Tab PO PRN ×2 (17:14→19:28)
[2016-05-30] MEDS ORDERED: Loperamide 2 MG Cap PO PRN (17:39)
[2016-05-30] MEDS: Nicotine 14 MG/24 Hr Patch TRDERM SCH (18:22)
[2016-05-30] MEDS ORDERED: Temazepam 15 MG Cap PO PRN (19:27)
[2016-05-30] MEDS: Enoxaparin 100 MG/1 ML Syringe SUBCUT SCH (21:23)
--- NOTE | 2016-05-31 00:40 | CONS ---
DATE OF CONSULTATION: DATE OF : 1965 PRIMARY CARE PHYSICIAN: None PCP REASON FOR CONSULTATION: AFib-RVR. HISTORY OF PRESENT ILLNESS: This is a 50-year-old male, with history of atrial fibrillation in the past and diagnosed with acute DVT in the left mid superficial femoral vein and popliteal vein, left Plasencia's cyst, admitted in [place] in November status post thrombectomy with tPA and also found to have cardiomyopathy with ejection fraction of 25%. Discharged with long-term subcutaneous anticoagulation with aspirin and Lasix. Now, today, when he was at stress test for Lexiscan, he start having shakiness and was also feeling palpitation. He was found to have atrial fibrillation with RVR, heart rate of 180s and that was the reason why he was admitted to the hospital. He stated that over the past 10 days, he kept drinking a lot like 2-3 bottles of hard liquor, but he has not had any drinking for the past two days, and this morning, he started feeling shaky and that was the reason why the Lexiscan was terminated. He was given Cardizem 25 mg IV twice. He was also saying that he was supposed to take metoprolol 100 mg three times a day; however, he missed two doses last night and this morning. So far, troponin has been negative for two sets. PAST MEDICAL HISTORY: Including persistent atrial fibrillation, history of DVT of left leg status post tPA, history of cardiomyopathy ejection fraction 25% improved to 50% to 55%, history of hypertension, history of PE. ALLERGY: No known drug allergies. PAST SURGICAL HISTORY: Sinus surgery. FAMILY HISTORY: Mother had a history of diabetes. Father had a history of diabetes and hypertension. SOCIAL HISTORY: He has a history of alcoholic drinking, former smoker, but he denied drug use. PHYSICAL EXAMINATION: VITAL SIGNS: Blood pressure is 120/87, heart rate of 90 to 110, O2 saturation 97 on room air, temperature 37.2. GENERAL APPEARANCE: He looks nervous, agitated. HEENT: Mildly pale, mildly dry, no jaundice. HEART: Tachycardia, totally irregular. No murmur. LUNGS: Clear. ABDOMEN: Soft, nontender. Bowel sounds present. No hepatosplenomegaly. EXTREMITIES: Legs, no edema. LABORATORY INVESTIGATION: CBC shows WBC 7, hematocrit 36, hemoglobin 12, platelet 195. Sodium 146, potassium 3.1, chloride 113, bicarb 19, glucose 112. GFR more than 60. Troponin negative for two sets. Alcohol level is less than 10. EKG show atrial fibrillation. ASSESSMENT/PLAN: This is a 50-year-old hiram with history of persistent atrial fibrillation, cardiomyopathy ejection fraction improved to 50% to 55%, history of hypertension, history of deep vein thrombosis, history of pulmonary embolism on long-term anticoagulation with Lovenox. He was presented to the hospital with atrial fibrillation and rapid ventricular response. 1. Atrial fibrillation with aFib-RVR and most likely related to missing of dosage of metoprolol. I would resume metoprolol 100 t.i.d. and I would recommend to start Cardizem 120 twice a day and continue Lovenox and also part of the problem could be related to alcohol withdrawal, so I would consider CIWA protocol for his alcohol withdrawal. 2. Shakiness and history of alcoholic abuse. He may have had alcohol withdrawal symptoms, currently I would consider CIWA protocol. 3. History of deep vein thrombosis and pulmonary embolism. Continue Lovenox. 4. Cardiomyopathy. Most likely nonischemic cardiomyopathy, but I would probably do the Lexiscan as an outpatient. Please feel free to give me a call with any questions. CARI MARSHALL /[phone]
[2016-05-31] MEDS ORDERED: Acetaminophen 325 MG Tab PO PRN (01:36)
[2016-05-31] MEDS: oxyCODONE 5 MG Tab PO PRN ×2 (01:43→08:00)
[2016-05-31] MEDS: Metoprolol Tartrate 50 MG Tab PO SCH ×2 (06:09→13:55)
[2016-05-31] MEDS ORDERED: Diltiazem 120 MG Cap.CD PO SCH (09:00)
[2016-05-31] MEDS: Enoxaparin 100 MG/1 ML Syringe SUBCUT SCH (09:12)
[2016-05-31] MEDS: Nicotine 14 MG/24 Hr Patch TRDERM SCH (09:12)
--- NOTE | 2016-05-31 10:15 | PCM.PN ---
- General Info Date of Service: 05/31/16 Functional Status: Reports: other (pain r ankle flared up and Lester prescribed at pt request, however he admits past abuse of other grugs and it will not b e continued) - Review of Systems General: Reports: Other (tired, sleeping alot) HEENT: Reports: no symptoms Pulmonary: Reports: no symptoms Cardiovascular: Reports: No Symptoms Gastrointestinal: Reports: No symptoms Genitourinary: Reports: no symptoms Musculoskeletal: Reports: no symptoms, joint pain (R ankle hurt during night) Skin: Reports: no symptoms Neurological: Reports: No Symptoms Psychiatric: Reports: no symptoms - Patient Data Vitals - most recent: Last Vital Signs Temp 35.6 C 05/31/16 08:00 Pulse 81 05/31/16 08:00 Resp 16 05/31/16 08:00 BP 128/88 05/31/16 08:00 Pulse Ox 98 05/31/16 08:00 Weight - most recent: 92 kg I&O - last 24 hours: Intake & Output 05/30/16 05/31/16 05/31/16 22:59 06:59 14:59 Intake Total 500 2150 Output Total 1100 Balance 500 1050 Lab Results last 24 hrs: Laboratory Results - last 24 hr 05/30/16 05/30/16 05/30/16 Range/Units 15:11 15:11 20:40 Troponin I < 0.10 (0.0-0.29) NG/ML Urine Opiates Screen NEGATIVE (NEGATIVE) Ur Oxycodone Screen NEGATIVE (NEGATIVE) Urine Methadone Screen NEGATIVE (NEGATIVE) Ur Barbiturates Screen NEGATIVE (NEGATIVE) Ur Phencyclidine Scrn NEGATIVE (NEGATIVE) Ur Amphetamine Screen NEGATIVE (NEGATIVE) U Methamphetamines Scrn NEGATIVE (NEGATIVE) U Benzodiazepines Scrn NEGATIVE (NEGATIVE) U Cocaine Metab Screen NEGATIVE (NEGATIVE) U Marijuana (THC) Screen NEGATIVE (NEGATIVE) Ethyl Alcohol < 10.0 mg/dL Patrick Results last 24 hrs: Microbiology 05/30/16 20:40 Clostridium difficile Toxin A&B (M) - Final Stool / Feces Negative for C.Diff Toxin/AG Med Orders - Current: Current Medications Acetaminophen (Tylenol) 650 mg PO Q6H PRN PRN Reason: Pain Enoxaparin Sodium (Lovenox) 100 mg SUBCUT Q12HR TEENA Last Admin: 05/31/16 09:12 Dose: 100 mg Loperamide HCl (Imodium) 2 mg PO Q4H PRN PRN Reason: Diarrhea Lorazepam (Ativan) 1 mg PO Q6H PRN PRN Reason: Anxiety Last Admin: 05/31/16 01:12 Dose: 1 mg Metoprolol Tartrate (Lopressor) 100 mg PO TID [facility] Last Admin: 05/31/16 06:09 Dose: 100 mg Nicotine (Habitrol) 14 mg TRDERM DAILY [facility] Last Admin: 05/31/16 09:12 Dose: 14 mg Oxycodone HCl (Oxycodone) 5 mg PO Q6H PRN PRN Reason: Pain Last Admin: 05/31/16 08:00 Dose: 5 mg Temazepam (Restoril) 15 mg PO BEDTIME PRN PRN Reason: Sleep Last Admin: 05/30/16 21:24 Dose: 15 mg Discontinued Medications Diltiazem HCl (Diltiazem) 25 mg IVPUSH ONETIME ONE Stop: 05/30/16 08:21 Last Admin: 05/30/16 08:32 Dose: 25 mg Diltiazem HCl (Diltiazem) 25 mg IVPUSH ONETIME ONE Stop: 05/30/16 14:09 Last Admin: 05/30/16 14:20 Dose: 25 mg Diltiazem HCl (Cardizem Cd) 120 mg PO DAILY [facility] Last Admin: 05/30/16 16:06 Dose: 120 mg Diltiazem HCl (Diltiazem) 25 mg IVPUSH ONETIME ONE Stop: 05/30/16 16:58 Last Admin: 05/30/16 17:12 Dose: 25 mg Diltiazem HCl (Cardizem Cd) 120 mg PO DAILY [facility] Last Admin: 05/30/16 17:06 Dose: Not Given Diltiazem HCl (Cardizem Cd) 120 mg PO BID [facility] Diltiazem HCl 100 mg/ Sodium (Chloride) 100 mls @ 5 mls/hr IV TITRATE TEENA; 5 MG /HR PRN Reason: Protocol Lorazepam (Ativan) 1 mg PO Q8H PRN PRN Reason: Anxiety Last Admin: 05/30/16 19:16 Dose: 1 mg Potassium Chloride (Potassium Chloride) 40 meq PO ONETIME ONE Stop: 05/30/16 09:23 Last Admin: 05/30/16 12:54 Dose: Not Given Potassium Chloride (Klor-Con M20) 40 meq PO ONETIME ONE Stop: 05/30/16 09:38 Last Admin: 05/30/16 09:39 Dose: 40 meq Potassium Chloride (Klor-Con M20) Confirm Administered Dose 40 meq .ROUTE .STK- MED ONE Stop: 05/30/16 09:36 Last Admin: 05/30/16 09:40 Dose: Not Given - Exam General: alert HEENT: Other (not checked) Neck: trachea midline Lungs: Clear to auscultation Cardiovascular: Irregular Rhythm (rate 80iess) Abdomen: bowel sounds present, soft, no tenderness, no distension Back Exam: normal inspection Extremities: no edema, no calf tenderness, other (no ankle deformity effusion or tenderness) - Problem List Review Problem List Initiated/Reviewed/Updated: Yes - My Orders Last 24 Hours: My Active Orders 05/30/16 09:45 Telemetry Monitoring [Cardiac Monitoring] [RC] . DIRECTED 05/30/16 15:06 Consult to Physician [CONS] Routine 05/30/16 15:08 Notify Provider Consults [RC] ASDIRECTED 05/30/16 16:59 Code Status [Resuscitation Status] Routine 05/30/16 17:15 Nicotine [Habitrol] 14 mg TRDERM DAILY 05/30/16 17:39 Loperamide [Imodium] 2 mg PO Q4H PRN 05/30/16 21:00 Enoxaparin [Lovenox] 100 mg SUBCUT Q12HR 05/30/16 Dinner Heart Healthy Diet [DIET] 05/31/16 01:35 oxyCODONE 5 mg PO Q6H PRN 05/31/16 01:36 Acetaminophen [Tylenol] 650 mg PO Q6H PRN - Assessment Assessment:: a fib controlled on present regimen metoprolol 100 tid, cardizem 120 bid - Plan Plan:: onferred with Dr Duncan, who will see will continue metoprolol, probably titrate up the cardizem maintain lovenox bid Add NSAID instead of opioid Mobilize Probably home soon, outpatient ett
[2016-05-31] MEDS ORDERED: Celecoxib 100 MG Cap PO SCH (10:30)
[2016-05-31 13:55] VITALS: BP 140/95
--- NOTE | 2016-05-31 15:35 | PCM.DCSUM1 ---
Discharge Summary - Discharge Data Discharge Date: 05/31/16 Discharge Disposition: Home, Self-Care 01 Condition: Good - Discharge Diagnosis/Problem(s) (1) Atrial fibrillation SNOMED Code(s): 23351073 ICD Code: I48.91 - UNSPECIFIED ATRIAL FIBRILLATION Status: Chronic Priority: High Qualifiers: Atrial fibrillation type: persistent Qualified Code(s): I48.1 - Persistent atrial fibrillation (2) DVT (deep venous thrombosis) SNOMED Code(s): 644977920 Status: Acute Qualifiers: DVT location: lower extremity Affected thrombotic vein of extremity: unspecified lower extremity distal vein Laterality: left Chronicity: unspecified Qualified Code(s): I82.4Z2 - Acute embolism and thrombosis of unspecified deep veins of left distal lower extremity - Patient Summary/Data Consults: Consultations 05/30/16 15:06 Consult to Physician [CONS] Routine Recommended Follow-up Testing/Procedures: pharmacologic stress test - Patient Instructions Diet: Usual Diet as Tolerated Driving: May Drive Today Showering/Bathing: May Shower - Discharge Plan Prescriptions/Med Rec: Enoxaparin [Lovenox] 100 mg SUBCUT Q12HR #60 syringe Celecoxib [CeleBREX] 100 mg PO BID #60 cap Diltiazem [Cardizem CD] 120 mg PO BID #60 cap.cd LORazepam [Ativan] 1 mg PO Q6H PRN #60 tablet PRN Reason: Anxiety Metoprolol Tartrate [Lopressor] 100 mg PO TID #90 tablet Nicotine [Habitrol] 14 mg TRDERM DAILY #30 patch Home Medications: Home Meds Aspirin 81 mg PO DAILY 04/19/16 [History] Celecoxib [CeleBREX] 100 mg PO BID #60 cap 05/31/16 [Rx] Diltiazem [Cardizem CD] 120 mg PO BID #60 cap.cd 05/31/16 [Rx] Enoxaparin [Lovenox] 100 mg SUBCUT Q12HR #60 syringe 05/31/16 [Rx] LORazepam [Ativan] 1 mg PO Q6H PRN #60 tablet 05/31/16 [Rx] Loperamide [Imodium] 2 mg PO Q4H PRN #20 cap 05/31/16 [Rx] Metoprolol Tartrate [Lopressor] 100 mg PO TID #90 tablet 05/31/16 [Rx] Nicotine [Habitrol] 14 mg TRDERM DAILY #30 patch 05/31/16 [Rx] Patient Handouts: Metoprolol tablets, Celecoxib capsules, Enoxaparin injection , Lorazepam tablets, Nicotine skin patches, How and Where to Give Subcutaneous Enoxaparin Injections, Atrial Fibrillation, [id number] - Discharge Summary/Plan Comment DC Time >30 min.: No - Patient Data Vitals - Most Recent: Last Vital Signs Temp 35.8 C 05/31/16 12:00 Pulse 83 05/31/16 13:55 Resp 20 05/31/16 12:00 BP 140/95 H 05/31/16 13:55 Pulse Ox 98 05/31/16 12:00 Weight - Most Recent: 92 kg I&O - Last 24 hours: Intake & Output 05/31/16 05/31/16 05/31/16 06:59 14:59 22:59 Intake Total 2150 Output Total 1100 Balance 1050 Lab Results - Last 24 hrs: Laboratory Results - last 24 hr 05/30/16 05/30/16 05/30/16 Range/Units 15:11 15:11 20:40 Troponin I < 0.10 (0.0-0.29) NG/ML Urine Opiates Screen NEGATIVE (NEGATIVE) Ur Oxycodone Screen NEGATIVE (NEGATIVE) Urine Methadone Screen NEGATIVE (NEGATIVE) Ur Barbiturates Screen NEGATIVE (NEGATIVE) Ur Phencyclidine Scrn NEGATIVE (NEGATIVE) Ur Amphetamine Screen NEGATIVE (NEGATIVE) U Methamphetamines Scrn NEGATIVE (NEGATIVE) U Benzodiazepines Scrn NEGATIVE (NEGATIVE) U Cocaine Metab Screen NEGATIVE (NEGATIVE) U Marijuana (THC) Screen NEGATIVE (NEGATIVE) Ethyl Alcohol < 10.0 mg/dL AUDREY Results - Last 24 hrs: Microbiology 05/30/16 20:40 Clostridium difficile Toxin A&B (M) - Final Stool / Feces Negative for C.Diff Toxin/AG Med Orders - Current: Current Medications Acetaminophen (Tylenol) 650 mg PO Q6H PRN PRN Reason: Pain Celecoxib (Celebrex) 100 mg PO BID [facility] Last Admin: 05/31/16 10:37 Dose: 100 mg Enoxaparin Sodium (Lovenox) 100 mg SUBCUT Q12HR [facility] Last Admin: 05/31/16 09:12 Dose: 100 mg Loperamide HCl (Imodium) 2 mg PO Q4H PRN PRN Reason: Diarrhea Lorazepam (Ativan) 1 mg PO Q6H PRN PRN Reason: Anxiety Last Admin: 05/31/16 01:12 Dose: 1 mg Metoprolol Tartrate (Lopressor) 100 mg PO TID [facility] Last Admin: 05/31/16 13:55 Dose: 100 mg Nicotine (Habitrol) 14 mg TRDERM DAILY [facility] Last Admin: 05/31/16 09:12 Dose: 14 mg Temazepam (Restoril) 15 mg PO BEDTIME PRN PRN Reason: Sleep Last Admin: 05/30/16 21:24 Dose: 15 mg Discontinued Medications Diltiazem HCl (Diltiazem) 25 mg IVPUSH ONETIME ONE Stop: 05/30/16 08:21 Last Admin: 05/30/16 08:32 Dose: 25 mg Diltiazem HCl (Diltiazem) 25 mg IVPUSH ONETIME ONE Stop: 05/30/16 14:09 Last Admin: 05/30/16 14:20 Dose: 25 mg Diltiazem HCl (Cardizem Cd) 120 mg PO DAILY [facility] Last Admin: 05/30/16 16:06 Dose: 120 mg Diltiazem HCl (Diltiazem) 25 mg IVPUSH ONETIME ONE Stop: 05/30/16 16:58 Last Admin: 05/30/16 17:12 Dose: 25 mg Diltiazem HCl (Cardizem Cd) 120 mg PO DAILY [facility] Last Admin: 05/30/16 17:06 Dose: Not Given Diltiazem HCl (Cardizem Cd) 120 mg PO BID [facility] Diltiazem HCl 100 mg/ Sodium (Chloride) 100 mls @ 5 mls/hr IV TITRATE TEENA; 5 MG /HR PRN Reason: Protocol Lorazepam (Ativan) 1 mg PO Q8H PRN PRN Reason: Anxiety Last Admin: 05/30/16 19:16 Dose: 1 mg Oxycodone HCl (Oxycodone) 5 mg PO Q6H PRN PRN Reason: Pain Last Admin: 05/31/16 08:00 Dose: 5 mg Potassium Chloride (Potassium Chloride) 40 meq PO ONETIME ONE Stop: 05/30/16 09:23 Last Admin: 05/30/16 12:54 Dose: Not Given Potassium Chloride (Klor-Con M20) 40 meq PO ONETIME ONE Stop: 05/30/16 09:38 Last Admin: 05/30/16 09:39 Dose: 40 meq Potassium Chloride (Klor-Con M20) Confirm Administered Dose 40 meq .ROUTE .STK- MED ONE Stop: 05/30/16 09:36 Last Admin: 05/30/16 09:40 Dose: Not Given *Q Meaningful Use (DIS) - VTE *Q VTE Criteria *Q: - Stroke *Q Stroke Criteria *Q: - AMI *Q AMI Criteria *Q:
== END 2016-05-31 16:20 | disposition home or self-care (01) ==
LOC: MW.ED 08:10 → MW.MS 12:11
PROVIDERS: ADMIT Internal Medicine; ATTEND Internal Medicine
DX: I48.1 Persistent atrial fibrillation (principal); I82.4Z2 Acute embolism and thrombosis of unspecified deep veins of left distal lower extremity; J45.909 Unspecified asthma, uncomplicated; Z79.82 Long term (current) use of aspirin; Z79.899 Other long term (current) drug therapy; Z98.890 Other specified postprocedural states; Z87.891 Personal history of nicotine dependence
CPT/HCPCS: 36415; 71010; 80053; 80305; 83735; 84484; 85025; 87324; 93005; 96372; 96374; 96376; 99285; A9270; G0378; G0480; J1650; 99284; J3490

== ENCOUNTER → 2016-05-30 | Outpatient (CLI) | payer MEDICAID | LOC: MW.NM 06:03 | PROVIDERS: ATTEND Internal Medicine | DX: I48.91 Unspecified atrial fibrillation (principal); Z53.9 Procedure and treatment not carried out, unspecified reason ==

== ENCOUNTER → 2016-06-11 | Outpatient (CLI) | payer MEDICAID ==
--- NOTE | 2016-06-16 15:03 | NM ---
EXAM DATE: 06/11/16 PATIENT'S AGE: 50 ADDENDUM: Additional images were obtained at rest following the administration of 27.5 mCi of technetium 99M labeled sestamibi. FINDINGS/IMPRESSION: The previously demonstrated defect at the apex and less so along the inferior wall appear unchanged at rest. This likely represents a degree of diaphragmatic attenuation. Wall motion is similar with an ejection fraction of 44%. The TID is approximately 1. EXAMINATION: Nuclear medicine myocardial perfusion study HISTORY: Atrial fibrillation. PROCEDURE: Following intravenous administration of 0.4 mg of Lexiscan and 27.5 mCi of technetium 99m sestamibi, stress SPECT images including gating imaging was performed. FINDINGS: Stress myocardial SPECT images demonstrates mildly decreased perfusion along the inferior wall with moderately decreased perfusion involving a small area at the apex. Review of gated images demonstrates mild global hypokinesis most notable at the apex. The left ventricular ejection fraction is 41 %. The left ventricular chamber size is mildly prominent at 164 mL. IMPRESSION: 1. There is generalized hypokinesis most notable at the apex. There is also mildly decreased perfusion along the inferior wall and moderately at the apex. Correlate with rest imaging. 2. Borderline ventricular chamber size and ejection fraction of 41%. MTDD
== END ==
LOC: MW.NM 16:00
PROVIDERS: ATTEND Internal Medicine
DX: I51.89 Other ill-defined heart diseases (principal)
CPT/HCPCS: 78451; A9500

== ENCOUNTER 2016-06-13 09:53 | Day surgery (SDC) | payer MEDICAID ==
[~2016-06-13 09:53] MED LIST: Lactated Ringers 1,000 ML IV SCH; Midazolam 1 MG/ML 2 ML SDV ONE; Propofol 200 MG/20 ML SDV ONE; fentaNYL 100 MCG/2 ML SDV ONE
--- NOTE | 2016-06-13 11:21 | PCM.SN ---
- Free Text/Narrative Note: I was notified by Sophie HARTMAN that on arrival to [facility] the patient had chewing tobacco in his mouth and he was complaining of Rt calf pain. 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 Cardiac poon his CHF has improved, previous low was around 25% EF, current study 's indicate EF around 40%. The patient was seen Dr Wu for CV clearance this week. The patient also notes that he has been trying to get into his primary care provider in [facility] to be seen for his new onset Lt calf tenderness 3 day history. On further exam Lt lateral/posterior aspect of the calf is tender per the patient and has some noticeable edema when compared with his Rt calf. These findings were discussed with Dr Senior who agrees we should cancel his elective procedure for today pending evaluation of his Lt Leg for possible recurrent DVT. The patient was informed of these concerns and states he has noticed more swelling in his Lt leg in the last few days as well. I informed him that would take him to the ER for further workup. The patient stated he wanted to go to "[employer] and eat" before going the the ER evaluation. The patients IV was d/c'd by nursing.
[2016-06-13 11:46] VITALS: BP 141/89
== END 2016-06-13 11:10 | disposition home or self-care (01) ==
LOC: MW.SDS 09:53
PROVIDERS: ATTEND Surgery
DX: Z53.8 Procedure and treatment not carried out for other reasons (principal)
CPT/HCPCS: J2250; J2704; J3010; J7120

== ENCOUNTER 2016-06-13 12:07 | Emergency (ER) | payer MEDICAID ==
--- NOTE | 2016-06-13 13:24 | US ---
ULTRASOUND EXAMINATION OF the left lower extremity WITH DOPPLER HISTORY: Pain FINDINGS: Examination of the left leg was performed from the groin to the calf region. All visualized segment s including common femoral, proximal greater saphenous, superficial femoral, popliteal and calf vein s appear patent with good compressibility and augmentation. There is no evidence of deep vein throm bosis. There is a small to moderate Plasencia's cyst noted. IMPRESSION: No evidence of a DVT.
--- NOTE | 2016-06-13 13:34 | EDM.PDOC ---
ED HPI Trauma - General Chief Complaint: Lower Extremity Injury/Pain Stated Complaint: LEFT LEG Time Seen by Provider: 06/13/16 12:16 Source: Reports: Patient History Limitations: Reports: No limitations - History of Present Illness INITIAL COMMENTS - FREE TEXT/NARRATIVE: History of present illness: [] Patient was scheduled for a colonoscopy this morning and while he was there and staff noted that his left leg was swollen. He has a history of DVTs therefore they canceled the colonoscopy and send him to the emergency room for evaluation. Patient endorses three-day history of left calf pain and swelling Review of systems: As per history of present illness and below otherwise all systems reviewed and negative. Past medical history: As per history of present illness and as reviewed below otherwise noncontributory. Surgical history: As per history of present illness and as reviewed below otherwise noncontributory. Social history: No reported history of drug or alcohol abuse. Family history: As per history of present illness and as reviewed below otherwise noncontributory. Physical exam: General: Well developed, well nourished in NAD HEENT: Atraumatic, normocephalic, pupils reactive, negative for conjunctival pallor or scleral icterus, mucous membranes moist, throat clear, neck supple, nontender, trachea midline. Lungs: Clear to auscultation, breath sounds equal bilaterally, chest nontender. Heart: S1S2, regular, negative for clicks, rubs, or JVD. Abdomen: Soft, nondistended, nontender. Negative for masses or hepatosplenomegaly. Negative for costovertebral tenderness. Pelvis: Stable nontender. Genitourinary: Deferred. Rectal: Deferred. Extremities: Atraumatic, negative for cords or calf pain. Neurovascular unremarkable. Neuro: Awake, alert, oriented. Cranial nerves II through XII unremarkable. Cerebellum unremarkable. Motor and sensory unremarkable throughout. Exam nonfocal. Diagnostics: [] Ultrasound negative for DVT Therapeutics: [] Impression: [] dependent edema Plan: [] Elevate legs as much as possible followup PMD return if symptoms worse Definitive disposition and diagnosis as appropriate pending reevaluation and review of above. Allergies/ADRs: Allergies No Known Allergies Allergy (Verified 06/13/16 12:20) Home Medications: Ambulatory Orders Aspirin 81 mg PO DAILY 04/19/16 [Confirmed 06/13/16] Celecoxib [CeleBREX] 100 mg PO BID #60 cap 05/31/16 [Confirmed 06/13/16] Diltiazem [Cardizem CD] 120 mg PO BID #60 cap.cd 05/31/16 [Confirmed 06/13/16] Enoxaparin [Lovenox] 100 mg SUBCUT Q12HR #60 syringe 05/31/16 [Confirmed ] LORazepam [Ativan] 1 mg PO Q6H PRN #60 tablet 05/31/16 [Confirmed 06/13/16] Metoprolol Tartrate [Lopressor] 100 mg PO TID #90 tablet 05/31/16 [Confirmed ] Thiamine Mononitrate [Vitamin B-1] 100 mg PO DAILY 06/12/16 [Confirmed 06/13/16] Past Medical History HEENT History: Reports: None Other HEENT History: wears glasses Cardiovascular History: Reports: Afib, Blood clots/VTE/DVT Other Cardiovascular History: DVT left leg x2, approx 6 months ago Respiratory History: Reports: Other (see below) Other Respiratory History: thinks he has Asthma Gastrointestinal History: Reports: None Genitourinary History: Reports: None Musculoskeletal History: Reports: Gout Other Musculoskeletal History: recent sprained ankle Neurological History: Reports: None Other Neuro History: facial fx Psychiatric History: Reports: Anxiety Other Psychiatric History: several bouts of detox for substance abuse Endocrine/Metabolic History: Reports: None Hematologic History: Reports: None Immunologic History: Reports: None Oncologic (Cancer) History: Reports: None Dermatologic History: Reports: None - Infectious Disease History Infectious Disease History: Reports: None - Past Surgical History Head Surgeries/Procedures: Reports: None HEENT Surgical History: Reports: Other (see below) Other HEENT Surgeries/Procedures: facial reconstructive surgery 2006 Cardiovascular Surgical History: Reports: Other (see below) Other Cardiovascular Surgeries/Procedures: DVT surgery GI Surgical History: Reports: Other (see below) Other GI Surgeries/Procedures: Lesion on colon Male Surgical History: Reports: None Endocrine Surgical History: Reports: None Oncologic Surgical History: Reports: None Dermatological Surgical History: Reports: None Social & Family History - Family History Family Medical History: Noncontributory Other GI Family History: sister with partial gastrectomy for cancer - Tobacco Use Smoking Status *Q: Current Every Day Smoker Years of Tobacco use: 15 Packs/Tins Daily: 1 Used Tobacco, but Quit: No Second Hand Smoke Exposure: Yes - Caffeine Use Caffeine Use: Reports: Coffee - Alcohol Use Days Per Week of Alcohol Use: 4 Number of Drinks Per Day: 2 Total Drinks Per Week: 8 - Recreational Drug Use Recreational Drug Use: No Drug Use in Last 12 Months: No Recreational Drug Type: Reports: Amphetamines (Speed) Other Recreational Drug Type: marihuana Recreational Drug Use Frequency: Not Used In Over 6 Months - Living Situation & Occupation Living situation: Reports: other ( has adult daughter,) Occupation: employed (worked as cook til injury to ankle) Review of Systems - Review of Systems Review Of Systems: See Below (CH a) Trauma Exam - Physical Exam Exam: See Below (See history of present illness) Course - Vital Signs Last Recorded V/S: Last Vital Signs Temp 37.1 C 06/13/16 12:22 Pulse 92 06/13/16 12:22 Resp 20 06/13/16 12:22 BP 148/85 H 06/13/16 12:22 Pulse Ox 93 L 06/13/16 12:22 Departure - Departure Time of Disposition: 13:34 Disposition: Home, Self-Care 01 Condition: good Clinical Impression: Dependent edema Forms: ED Department Discharge Additional Instructions: The following information is given to patients seen in the emergency department who are being discharged to home. This information is to outline your options for follow-up care. We provide all patients seen in our emergency department with a follow-up referral. The need for follow-up, as well as the timing and circumstances, are variable depending upon the specifics of your emergency department visit. If you don't have a primary care physician on staff, we will provide you with a referral. We always advise you to contact your personal physician following an emergency department visit to inform them of the circumstance of the visit and for follow-up with them and/or the need for any referrals to a consulting specialist. The emergency department will also refer you to a specialist when appropriate. This referral assures that you have the opportunity for follow-up care with a specialist. All of these measure are taken in an effort to provide you with optimal care, which includes your follow-up. Under all circumstances we always encourage you to contact your private physician who remains a resource for coordinating your care. When calling for follow-up care, please make the office aware that this follow-up is from your recent emergency room visit. If for any reason you are refused follow-up, please contact the [facility] Emergency Department at and asked to speak to the emergency department charge nurse. Elevate legs as much as possible [facility] [address] [place] [id number]
[2016-06-13 13:44] VITALS: BP 131/78
== END 2016-06-13 13:43 | disposition home or self-care (01) ==
LOC: MW.ED 12:07
DX: R60.9 Edema, unspecified (principal); F17.210 Nicotine dependence, cigarettes, uncomplicated; F41.9 Anxiety disorder, unspecified; Z86.718 Personal history of other venous thrombosis and embolism; Z98.890 Other specified postprocedural states; Z79.899 Other long term (current) drug therapy
CPT/HCPCS: 93005; 93971-26-LT; 93971-LT; 99282; 99285-25

== ENCOUNTER 2016-07-17 08:05 | Day surgery (SDC) | payer MEDICAID ==
[~2016-07-17 08:05] MED LIST changes: -Midazolam 1 MG/ML 2 ML SDV ONE; -Propofol 200 MG/20 ML SDV ONE; -fentaNYL 100 MCG/2 ML SDV ONE
[2016-07-17] MEDS ORDERED: Propofol 200 MG/20 ML SDV ONE ×2 (08:16→09:39)
[2016-07-17] MEDS ORDERED: Lidocaine 2% 5 ML SDV ONE (08:16)
[2016-07-17] MEDS ORDERED: fentaNYL 100 MCG/2 ML SDV ONE (08:17)
[2016-07-17] MEDS ORDERED: Midazolam 1 MG/ML 2 ML SDV ONE (08:17)
--- NOTE | 2016-07-17 08:46 | PCM.PREANE ---
Preanesthetic Assessment - Anesthesia/Transfusion/Family Hx Anesthesia History: Prior Anesthesia Without Reaction Family History of Anesthesia Reaction: No Transfusion History: Prior Transfusion Without Reaction - Physical Assessment O2 Sat by Pulse Oximetry: 97 Respiratory Rate: 16 Vital Signs: Last Vital Signs Temp 36.3 C 07/17/16 08:22 Pulse 79 07/17/16 08:22 Resp 16 07/17/16 08:22 BP 118/77 07/17/16 08:22 Pulse Ox 97 07/17/16 08:22 Height: 1.78 m Weight: 97.522 kg ASA Class: 3 Mental Status: Alert & Oriented x3 Airway Class: Mallampati = 2 Dentition: Reports: Normal Dentition, Nome(s) (x1 upper right) Thyro-Mental Finger Breadths: 3 Mouth Opening Finger Breadths: 3 ROM/Head Extension: Full Lungs: Clear to auscultation, Normal respiratory effort Cardiovascular: Irregular Rhythm - Allergies Allergies/Adverse Reactions: Allergies Allergy/AdvReac Type Severity Reaction Status Date / Time No Known Allergies Allergy Verified 07/15/16 12:03 - Blood Blood Available: No - Anesthesia Plan Pre-Op Medication Ordered: None Beta Rufus: Metoprolol Med Last Dose Date: 07/17/16 Med Last Dose Time: 06:00 - Acknowledgements Anesthesia Type Planned: MAC Pt an Appropriate Candidate for the Planned Anesthesia: Yes Alternatives and Risks of Anesthesia Discussed w Pt/Guardian: Yes Pt/Guardian Understands and Agrees with Anesthesia Plan: Yes PreAnesthesia Questionnaire HEENT History: Reports: None Other HEENT History: wears glasses Cardiovascular History: Reports: Afib, Blood Clots/VTE/DVT, Hypertension Other Cardiovascular History: DVT left leg x2 with SOB (probable PE) in april , on Lovenox. Cardiomyopathy CHF (NYHA II) Respiratory History: Reports: Sleep Apnea (h/o sleep apnea, lost 90 pounds last year), Other (See Below) Other Respiratory History: thinks he has Asthma Gastrointestinal History: Reports: None Genitourinary History: Reports: None Musculoskeletal History: Reports: Gout Other Musculoskeletal History: recent sprained ankle Neurological History: Reports: Other (See Below) Other Neuro History: facial fx Psychiatric History: Reports: Anxiety Other Psychiatric History: several bouts of detox for substance abuse Endocrine/Metabolic History: Reports: None Hematologic History: Reports: Anticoagulation Therapy Immunologic History: Reports: None Oncologic (Cancer) History: Reports: None Dermatologic History: Reports: None - Infectious Disease History Infectious Disease History: Reports: None - Past Surgical History Head Surgeries/Procedures: Reports: None HEENT Surgical History: Reports: Other (See Below) Other HEENT Surgeries/Procedures: facial reconstructive surgery 2006 (ORIF after zygomatic bone fx. in accident. Cardiovascular Surgical History: Reports: Other (See Below) Other Cardiovascular Surgeries/Procedures: DVT surgery Respiratory Surgical History: Reports: None GI Surgical History: Reports: Other (See Below) Other GI Surgeries/Procedures: Lesion on colon Male Surgical History: Reports: None Endocrine Surgical History: Reports: None Neurological Surgical History: Reports: None Musculoskeletal Surgical History: Reports: None Oncologic Surgical History: Reports: None Dermatological Surgical History: Reports: None - SUBSTANCE USE Smoking Status *Q: Current Every Day Smoker Tobacco Use Within Last Twelve Months: Cigarettes Second Hand Smoke Exposure: Yes Days Per Week of Alcohol Use: 4 Number of Drinks Per Day: 2 Total Drinks Per Week: 8 Recreational Drug Use History: No Recreational Drug Type: Reports: Amphetamines (Speed) - HOME MEDS Home Medications: Home Meds Aspirin 81 mg PO DAILY 04/19/16 [History] Diltiazem [Cardizem CD] 120 mg PO BID #60 cap.cd 05/31/16 [Rx] Enoxaparin [Lovenox] 100 mg SUBCUT Q12HR #60 syringe 05/31/16 [Rx] LORazepam [Ativan] 1 mg PO Q6H PRN #60 tablet 05/31/16 [Rx] Metoprolol Tartrate [Lopressor] 100 mg PO TID #90 tablet 05/31/16 [Rx] Thiamine Mononitrate [Vitamin B-1] 100 mg PO DAILY 06/12/16 [History] Furosemide [Lasix] 20 mg PO DAILY 07/15/16 [History] Spironolactone [Aldactone] 25 mg PO BID 07/15/16 [History] - CURRENT (IN HOUSE) MEDS Current Meds: Current Medications Lactated Ringer's (Ringers, Lactated) 1,000 mls @ 125 mls/hr IV ASDIRECTED TEENA Lactated Ringer's (Ringers, Lactated) 1,000 mls @ 125 mls/hr IV ASDIRECTED TEENA Discontinued Medications Fentanyl (Sublimaze) Confirm Administered Dose 100 mcg .ROUTE .STK-MED ONE Stop: 05/18/17 08:18 Lactated Ringer's (Ringers, Lactated) 1,000 mls @ 125 mls/hr IV ASDIRECTED TEENA Lidocaine (Xylocaine-Mpf 2%) Confirm Administered Dose 5 ml .ROUTE .STK-MED ONE Stop: 07/17/16 08:17 Midazolam HCl (Versed 1 Mg/Ml) Confirm Administered Dose 2 mg .ROUTE .STK-MED ONE Stop: 07/17/16 08:18 Propofol (Diprivan 20 Ml) Confirm Administered Dose 200 mg .ROUTE .STK-MED ONE Stop: 07/17/16 08:17
--- NOTE | 2016-07-17 10:09 | PCM.OPNOTE ---
- General Post-Op/Procedure Note Date of Surgery/Procedure: 07/17/16 Operative Procedure(s): Colonoscopy with cecal biopsies Pre Op Diagnosis: Anemia. Abnormal CT scan. Post-Op Diagnosis: Mild sigmoid diverticulosis. I Anesthesia Technique: MAC (ASA III) Primary Surgeon: Estevan Senior Condition: Good Free Text/Narrative:: Dictation [id number]
[2016-07-17] MEDS ORDERED: Lactated Ringers 1,000 ML IV SCH (10:15)
--- NOTE | 2016-07-17 10:30 | PCM.POSTAN ---
POST ANESTHESIA ASSESSMENT - MENTAL STATUS Mental Status: alert, oriented - RESPIRATORY Respiratory Status: respiratory rate WNL, airway patent, O2 saturation stable - CARDIOVASCULAR CV Status: pulse rate WNL, blood pressure stable - GASTROINTESTINAL GI Status: no symptoms - POST OP HYDRATION Hydration Status: adequate & stable - OBSERVATIONS Free Text/Narrative:: no anesthesia problems
[2016-07-17 10:48] VITALS: BP 120/83
--- NOTE | 2016-07-18 06:25 | OR ---
SURGEON: Estevan Senior M.D. DATE OF PROCEDURE: 07/17/2016 OPERATION PERFORMED: Colonoscopy with cecal biopsy. ANESTHESIA: MAC. ASA CLASSIFICATION: III. PREOPERATIVE DIAGNOSIS: New onset anemia, abdominal pain, had abnormal CT scan with suggestion of mucosal or colonic wall abnormality in the cecum. POSTOPERATIVE DIAGNOSIS: No significant inflammatory changes. DESCRIPTION OF PROCEDURE: The patient was taken to the endoscopy room and positioned on the endoscopy table in the left lateral decubitus position. Time-out was called for appropriate identification of patient and procedure. Monitored anesthesia care was provided. The colonoscope was inserted into the rectum and advanced with minimal difficulty to the cecum, where the colonoscope was retroflexed to visualize the ascending colon from below. I did not see any apparent mucosal abnormality, however with the radiologic findings, random biopsies of the cecum were obtained. The cecum was also identified by internal landmarks and external pressure. The remainder of the cecum, ascending colon, hepatic flexure, transverse colon, splenic flexure, and descending colon showed no tumors, polyps, diverticula, or angiodysplastic changes. No mucosal abnormalities were noted. There was no evidence of inflammatory bowel disease. The patient did have a couple of very small diverticula in the sigmoid colon. No stricture, spasm, or bleeding was noted. The colonoscope was withdrawn to the rectum and retroflexed to visualize the ascending colon from below. The colonoscope was then straightened, the rectum aspirated, and the colonoscope removed. The patient tolerated the procedure well and was taken to recovery room in stable condition. REGINE / JOANNA /[id number]
== END 2016-07-17 11:47 | disposition home or self-care (01) ==
LOC: MW.SDS 08:05
PROVIDERS: ATTEND Surgery
DX: K57.30 Diverticulosis of large intestine without perforation or abscess without bleeding (principal); D64.9 Anemia, unspecified; R93.3 Abnormal findings on diagnostic imaging of other parts of digestive tract; I48.91 Unspecified atrial fibrillation; I11.0 Hypertensive heart disease with heart failure; I50.9 Heart failure, unspecified; I42.9 Cardiomyopathy, unspecified; G47.30 Sleep apnea, unspecified; M10.9 Gout, unspecified; F41.9 Anxiety disorder, unspecified; Z82.49 Family history of ischemic heart disease and other diseases of the circulatory system; F17.210 Nicotine dependence, cigarettes, uncomplicated; Z79.82 Long term (current) use of aspirin; Z79.01 Long term (current) use of anticoagulants; Z79.899 Other long term (current) drug therapy; Z98.890 Other specified postprocedural states; Z86.718 Personal history of other venous thrombosis and embolism
CPT/HCPCS: 45380; 88305; J2250; J3010; J2704

== ENCOUNTER 2016-10-11 09:17 | Emergency (ER) | payer MEDICAID ==
--- NOTE | 2016-10-11 09:37 | EDM.PDOC ---
[id number] [id number] Time Seen by Provider: 10/11/16 09:32 Source of Information: Reports: Patient History Limitations: Reports: No Limitations - History of Present Illness INITIAL COMMENTS - FREE TEXT/NARRATIVE: History of present illness: []Patient has been drinking 7 shots of liquor every night for the past few days. Was evaluated by Dr. Jose who sent him to oncology for blood work. Patient currently lives in [place] and is staying in a motel while he is getting his medical care. Patient states he awoke this morning feeling very dehydrated and lightheaded felt like he was going to pass out. His last alcoholic drink was at 8 PM last night. Patient denies any abdominal pain, vomiting or diarrhea , fevers or chills. Review of systems: As per history of present illness and below otherwise all systems reviewed and negative. Past medical history: As per history of present illness and as reviewed below otherwise noncontributory. Surgical history: As per history of present illness and as reviewed below otherwise noncontributory. Social history: No reported history of drug or alcohol abuse. Family history: As per history of present illness and as reviewed below otherwise noncontributory. Physical exam: General: Well developed, well nourished in NAD HEENT: Atraumatic, normocephalic, pupils reactive, negative for conjunctival pallor or scleral icterus, mucous membranes moist, throat clear, neck supple, nontender, trachea midline. Lungs: Clear to auscultation, breath sounds equal bilaterally, chest nontender. Heart: S1S2, regular, negative for clicks, rubs, or JVD. Abdomen: Soft, nondistended, nontender. Negative for masses or hepatosplenomegaly. Negative for costovertebral tenderness. Pelvis: Stable nontender. Genitourinary: Deferred. Rectal: Deferred. Extremities: Atraumatic, negative for cords or calf pain. Neurovascular unremarkable. Neuro: Awake, alert, oriented. Cranial nerves II through XII unremarkable. Cerebellum unremarkable. Motor and sensory unremarkable throughout. Exam nonfocal. Diagnostics: []CBC and chemistries done which suggests mild dehydration Therapeutics: []IV hydration with normal saline and a 1 L banana bag with marked improvement, one dose of Librium was given as he started developing shakes while in the ED. Impression: []Alcoholic withdrawal, dehydration Plan: []Librium as directed follow-up PMD Definitive disposition and diagnosis as appropriate pending reevaluation and review of above. Back Pain Score (Numeric/FACES): 7 - Related Data Allergies Allergy/AdvReac Type Severity Reaction Status Date / Time No Known Allergies Allergy Verified 10/11/16 09:31 Home Meds: Home Meds Aspirin 81 mg PO DAILY 04/19/16 [History] Diltiazem [Cardizem CD] 120 mg PO BID #60 cap.cd 05/31/16 [Rx] Enoxaparin [Lovenox] 100 mg SUBCUT Q12HR #60 syringe 05/31/16 [Rx] LORazepam [Ativan] 1 mg PO Q6H PRN #60 tablet 05/31/16 [Rx] Metoprolol Tartrate [Lopressor] 100 mg PO TID #90 tablet 05/31/16 [Rx] Thiamine Mononitrate [Vitamin B-1] 100 mg PO DAILY 06/12/16 [History] Furosemide [Lasix] 20 mg PO DAILY 07/15/16 [History] Spironolactone [Aldactone] 25 mg PO BID 07/15/16 [History] chlordiazePOXIDE [Librium] 25 mg PO TID PRN #12 cap 10/11/16 [Rx] Past Medical History HEENT History: Reports: Impaired Vision Other HEENT History: wears glasses Cardiovascular History: Reports: Afib, Blood Clots/VTE/DVT, Hypertension Other Cardiovascular History: DVT left leg x2 with SOB (probable PE) in april , on Lovenox. Cardiomyopathy CHF (NYHA II) Respiratory History: Reports: Sleep Apnea Other Respiratory History: thinks he has Asthma Gastrointestinal History: Reports: None Genitourinary History: Reports: None Musculoskeletal History: Reports: Gout Other Musculoskeletal History: recent sprained ankle Neurological History: Reports: Other (See Below) Other Neuro History: facial fx Psychiatric History: Reports: Addiction, Anxiety Other Psychiatric History: several bouts of detox for substance abuse Endocrine/Metabolic History: Reports: None Hematologic History: Reports: Anticoagulation Therapy Immunologic History: Reports: None Oncologic (Cancer) History: Reports: None Dermatologic History: Reports: None - Infectious Disease History Infectious Disease History: Reports: None - Past Surgical History Other HEENT Surgeries/Procedures: facial reconstructive surgery 2006 (ORIF after zygomatic bone fx. in accident. Cardiovascular Surgical History: Reports: Other (See Below) Other Cardiovascular Surgeries/Procedures: DVT surgery GI Surgical History: Reports: Other (See Below) Other GI Surgeries/Procedures: Lesion on colon Male Surgical History: Reports: None Endocrine Surgical History: Reports: None Oncologic Surgical History: Reports: None Dermatological Surgical History: Reports: None Social & Family History - Family History Family Medical History: Noncontributory Other GI Family History: sister with partial gastrectomy for cancer - Tobacco Use Smoking Status *Q: Current Every Day Smoker Years of Tobacco use: 15 Packs/Tins Daily: 1 Used Tobacco, but Quit: No Second Hand Smoke Exposure: Yes - Caffeine Use Caffeine Use: Reports: Coffee - Alcohol Use Days Per Week of Alcohol Use: 4 Number of Drinks Per Day: 2 Total Drinks Per Week: 8 - Recreational Drug Use Recreational Drug Use: Yes Drug Use in Last 12 Months: Yes Recreational Drug Type: Reports: Marijuana/Hashish Other Recreational Drug Type: marihuana Recreational Drug Use Frequency: Not Used In Over 6 Months - Living Situation & Occupation Living situation: Reports: Other Occupation: Employed ED ROS GENERAL - Review of Systems Review Of Systems: See Below (History of present illness) ED EXAM, GENERAL - Physical Exam Exam: See Below (See history of present illness) Course - Vital Signs Last Recorded V/S: Last Vital Signs Temp 35.4 C 10/11/16 09:31 Pulse 75 10/11/16 11:43 Resp 16 10/11/16 11:43 BP 110/73 10/11/16 11:43 Pulse Ox 98 10/11/16 11:43 - Orders/Labs/Meds Orders: Active Orders 24 hr Category Date Time Status Sodium Chloride 0.9% [Saline Flush] Med 10/11/16 09:49 Active 10 ml FLUSH ASDIRECTED PRN Sodium Chloride 0.9% [Saline Flush] Med 10/11/16 09:49 Active 2.5 ml FLUSH ASDIRECTED PRN Saline Lock Insert [OM.PC] Stat Oth 10/11/16 09:49 Ordered Medication Orders Sodium Chloride (Saline Flush) 10 ml FLUSH ASDIRECTED PRN PRN Reason: Keep Vein Open Sodium Chloride (Saline Flush) 2.5 ml FLUSH ASDIRECTED PRN PRN Reason: Keep Vein Open Labs: Laboratory Tests 10/11/16 10/11/16 Range/Units 10:04 10:04 WBC 7.57 (4.0-11.0) K/uL RBC 4.07 L (4.50-5.90) M/uL Hgb 13.5 (13.0-17.0) g/dL Hct 39.0 (38.0-50.0) % MCV 95.8 (80.0-98.0) fL MCH 33.2 H (27.0-32.0) pg MCHC 34.6 (31.0-37.0) g/dL RDW Std Deviation 51.4 (28.0-62.0) fl RDW Coeff of Jamel 15 (11.0-15.0) % Plt Count 296 (150-400) K/uL MPV 8.90 (7.40-12.00) fL Neut % (Auto) 56.5 (48.0-80.0) % Lymph % (Auto) 33.4 (16.0-40.0) % [place] % (Auto) 9.2 (0.0-15.0) % Eos % (Auto) 0.4 (0.0-7.0) % Baso % (Auto) 0.5 (0.0-1.5) % Neut # (Auto) 4.3 (1.4-5.7) K/uL Lymph # (Auto) 2.5 H (0.6-2.4) K/uL [place] # (Auto) 0.7 (0.0-0.8) K/uL Eos # (Auto) 0.0 (0.0-0.7) K/uL Baso # (Auto) 0.0 (0.0-0.1) K/uL Nucleated RBC % 0.0 /100WBC Nucleated RBCs # 0 K/uL Sodium 134 L (136-146) mmol/L Potassium 4.6 (3.5-5.1) mmol/L Chloride 102 (98-110) mmol/L Carbon Dioxide 17 L (21-31) mmol/L BUN 53 H (6.0-23.0) mg/dL Creatinine 2.5 H (0.6-1.5) mg/dL Est Cr Clr Drug Dosing 37.65 mL/min Estimated GFR (MDRD) 27.5 ml/min Glucose 130 H (60-110) mg/dL Calcium 8.5 L (8.8-10.8) mg/dL Total Bilirubin 0.8 (0.1-1.5) mg/dL AST 33 (5-40) IU/L ALT 44 (8-54) IU/L Alkaline Phosphatase 56 (40-150) Total Protein 6.9 (6.0-8.0) g/dL Albumin 3.9 (3.5-5.0) g/dL Globulin 3.0 (2.0-3.5) g/dL Albumin/Globulin Ratio 1.3 (1.3-2.8) Meds: Medications Generic Name Dose Route Start Last Admin Trade Name Freq PRN Reason Stop Dose Admin Sodium Chloride 10 ml 10/11/16 09:49 Saline Flush FLUSH ASDIRECTED PRN Keep Vein Open Sodium Chloride 2.5 ml 10/11/16 09:49 Saline Flush FLUSH ASDIRECTED PRN Keep Vein Open Discontinued Medications Generic Name Dose Route Start Last Admin Trade Name Freq PRN Reason Stop Dose Admin Chlordiazepoxide HCl 10 mg 10/11/16 11:04 10/11/16 11:39 Librium PO 10/11/16 11:05 10 mg ONETIME ONE Administration Sodium Chloride 1,000 mls @ 999 mls/hr 10/11/16 09:49 10/11/16 10:00 Normal Saline IV 10/11/16 10:49 999 mls/hr .Bolus ONE Administration Multivitamins/Minerals 10 ml/ 1,011.2 mls @ 999 mls/hr 10/11/16 11:06 11:40 Thiamine HCl 100 mg/ Folic IV 10/11/16 12:06 999 mls/hr Acid 1 mg/ Sodium Chloride ONETIME ONE Administration Sodium Chloride 1,000 mls @ 999 mls/hr 10/11/16 11:05 Normal Saline IV 10/11/16 12:05 .Bolus ONE Departure - Departure Time of Disposition: 12:54 Disposition: Home, Self-Care 01 Condition: Good Clinical Impression: Dehydration Alcohol withdrawal Qualifiers: Complication of substance-induced condition: uncomplicated Qualified Code(s): F10.230 - Alcohol dependence with withdrawal, uncomplicated - Discharge Information Prescriptions: chlordiazePOXIDE [Librium] 25 mg PO TID PRN #12 cap PRN Reason: Agitation Instructions: Dehydration, Adult, [id number] Referrals: Lukenbill,Nuzhat J, [employer] [Nurse Practitioner] - PCP,None [Primary Care Provider] - Forms: ED Department Discharge Additional Instructions: The following information is given to patients seen in the emergency department who are being discharged to home. This information is to outline your options for follow-up care. We provide all patients seen in our emergency department with a follow-up referral. The need for follow-up, as well as the timing and circumstances, are variable depending upon the specifics of your emergency department visit. If you don't have a primary care physician on staff, we will provide you with a referral. We always advise you to contact your personal physician following an emergency department visit to inform them of the circumstance of the visit and for follow-up with them and/or the need for any referrals to a consulting specialist. The emergency department will also refer you to a specialist when appropriate. This referral assures that you have the opportunity for follow-up care with a specialist. All of these measure are taken in an effort to provide you with optimal care, which includes your follow-up. Under all circumstances we always encourage you to contact your private physician who remains a resource for coordinating your care. When calling for follow-up care, please make the office aware that this follow-up is from your recent emergency room visit. If for any reason you are refused follow-up, please contact the [facility] Emergency Department at and asked to speak to the emergency department charge nurse. Rich as directed. Do not drink anymore alcohol [facility] [address] [place] [id number] - My Orders Last 24 Hours: My Active Orders 10/11/16 09:49 Sodium Chloride 0.9% [Saline Flush] 10 ml FLUSH ASDIRECTED PRN Sodium Chloride 0.9% [Saline Flush] 2.5 ml FLUSH ASDIRECTED PRN Saline Lock Insert [OM.PC] Stat - Assessment/Plan Last 24 Hours: My Active Orders 10/11/16 09:49 Sodium Chloride 0.9% [Saline Flush] 10 ml FLUSH ASDIRECTED PRN Sodium Chloride 0.9% [Saline Flush] 2.5 ml FLUSH ASDIRECTED PRN Saline Lock Insert [OM.PC] Stat
[2016-10-11] MEDS ORDERED: Sodium Chloride 0.9% 10 ML Syringe FLUSH PRN (09:49)
[2016-10-11] MEDS ORDERED: Sodium Chloride 0.9% 1,000 ML IV ONE ×2 (09:49→11:05)
[2016-10-11] MEDS ORDERED: Sodium Chloride 0.9% 2.5 ML Syringe FLUSH PRN (09:49)
[2016-10-11] MEDS ORDERED: chlordiazePOXIDE 10 MG Cap PO ONE (11:04)
[2016-10-11] MEDS ORDERED: MVI, Adult with Vitamin K 10 ML, Thiamine 100 MG, Folic Acid 1 MG in Sodium Chloride 0.... IV ONE ×4 (11:06)
[2016-10-11 17:10] VITALS: BP 104/61
== END 2016-10-11 13:15 | disposition home or self-care (01) ==
LOC: MW.ED 09:17
DX: F10.230 Alcohol dependence with withdrawal, uncomplicated (principal); E86.0 Dehydration; F41.9 Anxiety disorder, unspecified; F17.210 Nicotine dependence, cigarettes, uncomplicated; Z79.82 Long term (current) use of aspirin; Z79.899 Other long term (current) drug therapy
CPT/HCPCS: 36415; 80053; 85025; 96361; 96365; 99284; A9270; J3411; J7040; 99283

== ENCOUNTER 2017-04-28 15:59 | Emergency (ER) | payer MEDICAID ==
[2017-04-28 17:03] LABS: CHLORIDE,CL 106 mmol/L (98-110); SODIUM,NA 140 mmol/L (136-146)
--- NOTE | 2017-04-28 17:33 | EDM.PDOC ---
ED HPI GENERAL MEDICAL PROBLEM - General Chief Complaint: Flank Pain Stated Complaint: KIDNEY PAIN Time Seen by Provider: 04/28/17 16:03 Source of Information: Reports: Patient History Limitations: Reports: No Limitations - History of Present Illness INITIAL COMMENTS - FREE TEXT/NARRATIVE: Presents to the ER reporting "my kidneys certain". Really everything I ask him he reports he has problems with. He states he has a cough but no shortness of breath his smoked on and off for 20 years he also chews tobacco. Reports some mild dysuria and pain over the kidneys. No reported injury. Also the last 2 days he has had a fever for the last 5 days feels "sick" but cannot be more specific. Has a history of atrial fib, DVTs, PEs, CHF. Is on Lovenox twice a day. His regular clinic doctor is in [place] Right Flank Pain Score (Numeric/FACES): 9 - Related Data Allergies Allergy/AdvReac Type Severity Reaction Status Date / Time No Known Allergies Allergy Verified 04/28/17 16:31 Home Meds: Home Meds Aspirin 81 mg PO DAILY 04/19/16 [History] Diltiazem [Cardizem CD] 120 mg PO BID #60 cap.cd 05/31/16 [Rx] Enoxaparin [Lovenox] 100 mg SUBCUT Q12HR #60 syringe 05/31/16 [Rx] LORazepam [Ativan] 1 mg PO Q6H PRN #60 tablet 05/31/16 [Rx] Metoprolol Tartrate [Lopressor] 100 mg PO TID #90 tablet 05/31/16 [Rx] Thiamine Mononitrate [Vitamin B-1] 100 mg PO DAILY 06/12/16 [History] Furosemide [Lasix] 20 mg PO DAILY 07/15/16 [History] Spironolactone [Aldactone] 25 mg PO BID 07/15/16 [History] chlordiazePOXIDE [Librium] 25 mg PO TID PRN #12 cap 10/11/16 [Rx] Past Medical History HEENT History: Reports: Impaired Vision Other HEENT History: wears glasses Cardiovascular History: Reports: Afib, Blood Clots/VTE/DVT, Hypertension Other Cardiovascular History: DVT left leg x2 with SOB (probable PE) in april , on Lovenox. Cardiomyopathy CHF (NYHA II) Respiratory History: Reports: Sleep Apnea Other Respiratory History: thinks he has Asthma Gastrointestinal History: Reports: None Genitourinary History: Reports: None Musculoskeletal History: Reports: Gout Other Musculoskeletal History: recent sprained ankle Neurological History: Reports: Other (See Below) Other Neuro History: facial fx Psychiatric History: Reports: Addiction, Anxiety Other Psychiatric History: several bouts of detox for substance abuse Endocrine/Metabolic History: Reports: None Hematologic History: Reports: Anticoagulation Therapy Immunologic History: Reports: None Oncologic (Cancer) History: Reports: None Dermatologic History: Reports: None - Infectious Disease History Infectious Disease History: Reports: Chicken Pox - Past Surgical History Other HEENT Surgeries/Procedures: facial reconstructive surgery 2006 (ORIF after zygomatic bone fx. in accident. Cardiovascular Surgical History: Reports: Other (See Below) Other Cardiovascular Surgeries/Procedures: DVT surgery GI Surgical History: Reports: Other (See Below) Other GI Surgeries/Procedures: Lesion on colon Male Surgical History: Reports: None Endocrine Surgical History: Reports: None Oncologic Surgical History: Reports: None Dermatological Surgical History: Reports: None Social & Family History - Family History Family Medical History: Noncontributory Other GI Family History: sister with partial gastrectomy for cancer - Tobacco Use Smoking Status *Q: Current Every Day Smoker Years of Tobacco use: 10 Packs/Tins Daily: 0.2 Used Tobacco, but Quit: No Second Hand Smoke Exposure: Yes - Caffeine Use Caffeine Use: Reports: Coffee - Alcohol Use Days Per Week of Alcohol Use: 4 Number of Drinks Per Day: 2 Total Drinks Per Week: 8 - Recreational Drug Use Recreational Drug Use: No Drug Use in Last 12 Months: Yes Recreational Drug Type: Reports: Marijuana/Hashish Other Recreational Drug Type: marihuana Recreational Drug Use Frequency: Not Used In Over 6 Months - Living Situation & Occupation Living situation: Reports: Other Occupation: Employed ED ROS GENERAL - Review of Systems Review Of Systems: ROS reveals no pertinent complaints other than HPI. ED EXAM, RENAL/ - Physical Exam Exam: See Below Exam Limited By: No Limitations General Appearance: Alert, No Apparent Distress Ears: Normal External Exam, Normal TMs Nose: Normal Inspection Throat/Mouth: Normal Inspection, Normal Teeth, Normal Oropharynx Head: Atraumatic, Normocephalic Neck: Normal Inspection. No: Lymphadenopathy (L), Lymphadenopathy (R) Respiratory/Chest: No Respiratory Distress, Lungs Clear, Normal Breath Sounds Cardiovascular: Normal Peripheral Pulses, Other (irregular) GI/Abdominal: Normal Bowel Sounds, Soft, Non-Tender Back Exam: Normal Inspection, CVA Tenderness (L) Extremities: Normal Inspection Neurological: Alert, Oriented, Normal Cognition Psychiatric: Normal Affect, Normal Mood Skin Exam: Warm, Dry, Intact, Normal Color, No Rash Lymphatic: No Adenopathy Course - Vital Signs Last Recorded V/S: Last Vital Signs Temp 36.4 C 04/28/17 16:29 Pulse 76 04/28/17 16:29 Resp 18 04/28/17 16:29 BP 126/90 04/28/17 16:29 Pulse Ox 96 04/28/17 16:29 - Orders/Labs/Meds Labs: Laboratory Tests 04/28/17 04/28/17 04/28/17 Range/Units 16:34 16:35 16:35 WBC 6.55 (4.0-11.0) K/uL RBC 3.36 L (4.50-5.90) M/uL Hgb 11.2 L (13.0-17.0) g/dL Hct 34.0 L (38.0-50.0) % MCV 101.2 H (80.0-98.0) fL MCH 33.3 H (27.0-32.0) pg MCHC 32.9 (31.0-37.0) g/dL RDW Std Deviation 60.3 (28.0-62.0) fl RDW Coeff of Jamel 16 H (11.0-15.0) % Plt Count 222 (150-400) K/uL MPV 8.70 (7.40-12.00) fL Neut % (Auto) 56.3 (48.0-80.0) % Lymph % (Auto) 35.1 (16.0-40.0) % [place] % (Auto) 7.0 (0.0-15.0) % Eos % (Auto) 1.1 (0.0-7.0) % Baso % (Auto) 0.5 (0.0-1.5) % Neut # (Auto) 3.7 (1.4-5.7) K/uL Lymph # (Auto) 2.3 (0.6-2.4) K/uL [place] # (Auto) 0.5 (0.0-0.8) K/uL Eos # (Auto) 0.1 (0.0-0.7) K/uL Baso # (Auto) 0.0 (0.0-0.1) K/uL Nucleated RBC % 0.0 /100WBC Nucleated RBCs # 0 K/uL Sodium 140 (136-146) mmol/L Potassium 3.9 (3.5-5.1) mmol/L Chloride 106 (98-110) mmol/L Carbon Dioxide 23 (21-31) mmol/L BUN 26 H (6.0-23.0) mg/dL Creatinine 1.1 (0.6-1.5) mg/dL Est Cr Clr Drug Dosing 84.62 mL/min Estimated GFR (MDRD) > 60.0 ml/min Glucose 80 (60-110) mg/dL Calcium 8.5 L (8.8-10.8) mg/dL Total Bilirubin 0.4 (0.1-1.5) mg/dL AST 20 (5-40) IU/L ALT 21 (8-54) IU/L Alkaline Phosphatase 62 (40-150) Total Protein 6.1 (6.0-8.0) g/dL Albumin 3.6 (3.5-5.0) g/dL Globulin 2.5 (2.0-3.5) g/dL Albumin/Globulin Ratio 1.4 (1.3-2.8) Urine Color YELLOW Urine Appearance CLEAR Urine pH 6.0 (5.0-8.0) Ur Specific [place] 1.010 (1.001-1.035) Urine Protein NEGATIVE (NEGATIVE) mg/dL Urine Glucose (UA) NEGATIVE (NEGATIVE) mg/dL Urine Ketones NEGATIVE (NEGATIVE) mg/dL Urine Occult Blood NEGATIVE (NEGATIVE) Urine Nitrite NEGATIVE (NEGATIVE) Urine Bilirubin NEGATIVE (NEGATIVE) Urine Urobilinogen 0.2 (<2.0) EU/dL Ur Leukocyte Esterase NEGATIVE (NEGATIVE) Urine RBC 0-1 (0-2/HPF) Urine WBC 0-1 (0-5/HPF) Ur Epithelial Cells RARE (NONE-FEW) Urine Bacteria RARE (NEGATIVE) - Re-Assessments/Exams Free Text/Narrative Re-Assessment/Exam: 04/28/17 18:59 Patient states he would like to FU with his primary provider in [place]. Departure - Departure Time of Disposition: 19:00 Disposition: Home, Self-Care 01 Condition: Good Clinical Impression: Dehydration - Discharge Information Referrals: PCP,None [Primary Care Provider] - Forms: ED Department Discharge Additional Instructions: 1. You must follow up with your primary provider in [place] as you have indicated you would. 2. Drink plenty of fluids including water and sports drinks. 3. Return promptly for fevers not controlled by Tylenol, burning with urination , vomiting, worsening pain.
[2017-04-28] MEDS ORDERED: Sodium Chloride 0.9% 1,000 ML IV ONE (18:53)
[2017-04-28] MEDS ORDERED: oxyCODONE 5 MG Tab PO ONE (18:54)
[2017-04-28 20:52] VITALS: BP 117/90
== END 2017-04-28 20:10 | disposition home or self-care (01) ==
LOC: MW.ED 15:59
DX: E86.0 Dehydration (principal); I10 Essential (primary) hypertension; F17.210 Nicotine dependence, cigarettes, uncomplicated; Z79.82 Long term (current) use of aspirin; Z79.899 Other long term (current) drug therapy
CPT/HCPCS: 36415; 80053; 81001; 85025; 87804; 96360; 99284; A9270; J7040; 99282

== ENCOUNTER 2018-05-12 18:50 | Emergency (ER) | payer MEDICAID ==
--- NOTE | 2018-05-12 19:07 | EDM.PDOC ---
ED HPI GENERAL MEDICAL PROBLEM - General Chief Complaint: Upper Extremity Injury/Pain Stated Complaint: RIGHT WRIST PAIN Time Seen by Provider: 05/12/18 19:05 Source of Information: Reports: Patient History Limitations: Reports: No Limitations - History of Present Illness INITIAL COMMENTS - FREE TEXT/NARRATIVE: HISTORY AND PHYSICAL: History of present illness: Patient is a 52-year-old male here with complaint of right wrist pain. He states it began 3 days ago, denies any injury or trauma. He developed some redness on the dorsal side. Denies fevers, chills, nausea, vomiting, diarrhea. He denies history of gout. he has history of hypertension, atrial fibrillation, and DVT on lovenox. Review of systems: As per history of present illness and below otherwise all systems reviewed and negative. Past medical history: As per history of present illness and as reviewed below otherwise noncontributory. Surgical history: As per history of present illness and as reviewed below otherwise noncontributory. Social history: No reported history of drug or alcohol abuse. Family history: As per history of present illness and as reviewed below otherwise noncontributory. Physical exam: General: Patient sitting comfortably in no acute distress and nontoxic appearing HEENT: Atraumatic, normocephalic, pupils reactive, negative for conjunctival pallor or scleral icterus, mucous membranes moist, throat clear, neck supple, nontender, trachea midline. No meningeal signs. Lungs: Clear to auscultation, breath sounds equal bilaterally, chest nontender. Heart: S1S2, regular, negative for clicks, rubs, or overt murmur. Abdomen: Soft, nondistended, nontender. Negative for masses or hepatosplenomegaly. Negative for costovertebral tenderness. No rigidity, rebound , guarding. Pelvis: Stable nontender. Genitourinary: Deferred. Rectal: Deferred. Extremities: The right wrist is slightly swollen with an area of erythema over the dorsal aspect of the wrist. This is slightly warm to touch. There is a slight area of erythema on the stephens aspect of the distal wrist as well. Patient is able to flex and extend fingers but difficulty with wrist ROM secondary to the pain. Skin is intact. Atraumatic, negative for cords or calf pain. Neurovascular unremarkable. Neuro: Awake, alert, oriented. Cranial nerves II through XII unremarkable. Cerebellum unremarkable. Motor and sensory unremarkable throughout. Exam nonfocal. Notes: Diagnostics: CBC, CMP, uric acid, x-ray right wrist Therapeutics: None Prescriptions: Colchicin Tylenol #3 (#12) Impression: acute gouty arthritis Plan: 1. Take medication as instructed. Do not take Tylenol #[address] as it may make you drowsy 2. Follow up with primary care provider 3. Return to ED as needed as discussed Definitive disposition and diagnosis as appropriate pending reevaluation and review of above. Right Wrist Pain Score (Numeric/FACES): 8 - Related Data Allergies Allergy/AdvReac Type Severity Reaction Status Date / Time No Known Allergies Allergy Verified 05/12/18 18:56 Home Meds: Home Meds Aspirin 81 mg PO DAILY 04/19/16 [History] Enoxaparin [Lovenox] 100 mg SUBCUT Q12HR #60 syringe 05/31/16 [Rx] LORazepam [Ativan] 1 mg PO Q6H PRN #60 tablet 05/31/16 [Rx] Metoprolol Tartrate [Lopressor] 100 mg PO TID #90 tablet 05/31/16 [Rx] Thiamine Mononitrate [Vitamin B-1] 100 mg PO DAILY 06/12/16 [History] Furosemide [Lasix] 20 mg PO DAILY 07/15/16 [History] Spironolactone [Aldactone] 25 mg PO BID 07/15/16 [History] chlordiazePOXIDE [Librium] 25 mg PO TID PRN #12 cap 10/11/16 [Rx] Colchicine [Colcrys] 0.6 mg PO DAILY #10 tablet 05/12/18 [Rx] Past Medical History HEENT History: Reports: Impaired Vision Other HEENT History: wears glasses Cardiovascular History: Reports: Afib, Blood Clots/VTE/DVT, Hypertension Other Cardiovascular History: DVT left leg x2 with SOB (probable PE) in april , on Lovenox. Cardiomyopathy CHF (NYHA II) Respiratory History: Reports: Sleep Apnea Other Respiratory History: thinks he has Asthma Gastrointestinal History: Reports: None Genitourinary History: Reports: None Musculoskeletal History: Reports: Gout Other Musculoskeletal History: recent sprained ankle Neurological History: Reports: Other (See Below) Other Neuro History: facial fx Psychiatric History: Reports: Addiction, Anxiety Other Psychiatric History: several bouts of detox for substance abuse Endocrine/Metabolic History: Reports: None Hematologic History: Reports: Anticoagulation Therapy Immunologic History: Reports: None Oncologic (Cancer) History: Reports: None Dermatologic History: Reports: None - Infectious Disease History Infectious Disease History: Reports: Chicken Pox - Past Surgical History Other HEENT Surgeries/Procedures: facial reconstructive surgery 2006 (ORIF after zygomatic bone fx. in accident. Cardiovascular Surgical History: Reports: Other (See Below) Other Cardiovascular Surgeries/Procedures: DVT surgery GI Surgical History: Reports: Other (See Below) Other GI Surgeries/Procedures: Lesion on colon Male Surgical History: Reports: None Endocrine Surgical History: Reports: None Oncologic Surgical History: Reports: None Dermatological Surgical History: Reports: None Social & Family History - Family History Family Medical History: Noncontributory Other GI Family History: sister with partial gastrectomy for cancer - Tobacco Use Smoking Status *Q: Current Every Day Smoker Years of Tobacco use: 7 Packs/Tins Daily: 0.5 - Caffeine Use Caffeine Use: Reports: None - Recreational Drug Use Recreational Drug Use: No - Living Situation & Occupation Living situation: Reports: Other Occupation: Employed Review of Systems - Review of Systems Review Of Systems: ROS reveals no pertinent complaints other than HPI. ED EXAM, GENERAL - Physical Exam Exam: See Below (see dictation) Course - Vital Signs Last Recorded V/S: Last Vital Signs Temp 97.6 F 05/12/18 18:58 Pulse 87 05/12/18 18:58 Resp 18 05/12/18 18:58 BP 108/84 05/12/18 18:58 Pulse Ox 96 05/12/18 18:58 - Orders/Labs/Meds Labs: Laboratory Tests 05/12/18 05/12/18 Range/Units 19:24 19:24 WBC 13.15 H (4.0-11.0) K/uL RBC 4.73 (4.50-5.90) M/uL Hgb 14.8 (13.0-17.0) g/dL Hct 43.1 (38.0-50.0) % MCV 91.1 (80.0-98.0) fL MCH 31.3 (27.0-32.0) pg MCHC 34.3 (31.0-37.0) g/dL RDW Std Deviation 47.6 (28.0-62.0) fl RDW Coeff of Jamel 14 (11.0-15.0) % Plt Count 235 (150-400) K/uL MPV 9.00 (7.40-12.00) fL Neut % (Auto) 69.8 (48.0-80.0) % Lymph % (Auto) 19.5 (16.0-40.0) % [place] % (Auto) 9.4 (0.0-15.0) % Eos % (Auto) 1.0 (0.0-7.0) % Baso % (Auto) 0.3 (0.0-1.5) % Neut # (Auto) 9.2 H (1.4-5.7) K/uL Lymph # (Auto) 2.6 H (0.6-2.4) K/uL [place] # (Auto) 1.2 H (0.0-0.8) K/uL Eos # (Auto) 0.1 (0.0-0.7) K/uL Baso # (Auto) 0.0 (0.0-0.1) K/uL Nucleated RBC % 0.0 /100WBC Nucleated RBCs # 0 K/uL Sodium 139 (136-148) mmol/L Potassium 3.9 (3.5-5.1) mmol/L Chloride 103 (98-107) mmol/L Carbon Dioxide 21.8 (21.0-32.0) mmol/L BUN 13 (7.0-18.0) mg/dL Creatinine 0.9 (0.8-1.3) mg/dL Est Cr Clr Drug Dosing 105.38 mL/min Estimated GFR (MDRD) > 60.0 ml/min Glucose 104 (74-106) mg/dL Uric Acid 11.4 H (2.6-7.2) mg/dL Calcium 8.8 (8.5-10.1) mg/dL Total Bilirubin 0.3 (0.2-1.0) mg/dL AST 16 (15-37) IU/L ALT 33 (14-63) IU/L Alkaline Phosphatase 83 (46-116) U/L Total Protein 7.3 (6.4-8.2) g/dL Albumin 3.7 (3.4-5.0) g/dL Globulin 3.6 (2.6-4.0) g/dL Albumin/Globulin Ratio 1.0 (0.9-1.6) Departure - Departure Time of Disposition: 20:09 Disposition: Home, Self-Care 01 Condition: Good Clinical Impression: Acute gouty arthritis - Discharge Information Prescriptions: Colchicine [Colcrys] 0.6 mg PO DAILY #10 tablet Referrals: Roscoe Goldsmith MD [Primary Care Provider] - Forms: ED Department Discharge Additional Instructions: The following information is given to patients seen in the emergency department who are being discharged to home. This information is to outline your options for follow-up care. We provide all patients seen in our emergency department with a follow-up referral. The need for follow-up, as well as the timing and circumstances, are variable depending upon the specifics of your emergency department visit. If you don't have a primary care physician on staff, we will provide you with a referral. We always advise you to contact your personal physician following an emergency department visit to inform them of the circumstance of the visit and for follow-up with them and/or the need for any referrals to a consulting specialist. The emergency department will also refer you to a specialist when appropriate. This referral assures that you have the opportunity for follow-up care with a specialist. All of these measure are taken in an effort to provide you with optimal care, which includes your follow-up. Under all circumstances we always encourage you to contact your private physician who remains a resource for coordinating your care. When calling for follow-up care, please make the office aware that this follow-up is from your recent emergency room visit. If for any reason you are refused follow-up, please contact the [facility] Emergency Department at and asked to speak to the emergency department charge nurse. [facility] [address] [place] [id number] 1. Take medication as instructed. Do not take Tylenol #3 [address] as it may make you drowsy 2. Follow up with primary care provider 3. Return to ED as needed as discussed
[2018-05-12 19:50] LABS: CHLORIDE,CL 103 mmol/L (98-107); SODIUM,NA 139 mmol/L (136-148)
--- NOTE | 2018-05-12 19:58 | CR ---
Indication: Pain Technique: Three views of the right wrist Comparison: None available Findings/Impression: Bones: No acute fracture or dislocation. Apparent lucent foci in the scaphoid and lunate could represent subcortical cyst formations. Joint spaces: Unremarkable. Soft tissues: Unremarkable. Dictated by Brandon Deleon MD @ 05/12/2018 7:55:31 PM Dictated by: Brandon Deleon MD @ 05/12/2018 19:56:02 (Electronically Signed)
[2018-05-12 20:24] VITALS: BP 116/79
== END 2018-05-12 20:25 | disposition home or self-care (01) ==
LOC: MW.ED 18:50
DX: M10.031 Idiopathic gout, right wrist (principal); I10 Essential (primary) hypertension; I48.91 Unspecified atrial fibrillation; F41.9 Anxiety disorder, unspecified; F17.210 Nicotine dependence, cigarettes, uncomplicated; Z79.82 Long term (current) use of aspirin; Z79.899 Other long term (current) drug therapy; Z79.01 Long term (current) use of anticoagulants
CPT/HCPCS: 36415; 73110-26-RT; 73110-RT; 80053; 84550; 85025; 99283; 99283-25

== ENCOUNTER 2018-06-05 19:23 | Emergency (ER) | payer MEDICAID ==
[2018-06-05 19:58] VITALS: BP 113/77
[2018-06-05] MEDS ORDERED: Sodium Chloride 0.9% 1,000 ML IV ONE (20:00)
--- NOTE | 2018-06-05 20:00 | EDM.PDOC ---
ED HPI GENERAL MEDICAL PROBLEM - General Chief Complaint: Lower Extremity Injury/Pain Stated Complaint: PT HAS LT LEG PAIN Time Seen by Provider: 06/05/18 19:59 Source of Information: Reports: Patient History Limitations: Reports: No Limitations - History of Present Illness INITIAL COMMENTS - FREE TEXT/NARRATIVE: HISTORY AND PHYSICAL: History of present illness: Patient is a 52-year-old male who presents to the emergency room with complaints of gout flare to the left ankle. Patient has a long-standing history of gout and is positive that that is was going on today. Patient did call EMS as he states he was in moderate to severe pain and did not feel he could safely make it the emergency room on his own. No injury or trauma to the affected extremity. Patient denies any fever, chills, headache, change in vision, syncope or near syncope. Denies any chest pain, back pain, shortness of breath or cough. Denies any abdominal pain, nausea, vomiting, diarrhea, constipation or dysuria. Has not noted any blood in urine or stool. Patient has been eating and drinking appropriately. Review of systems: As per history of present illness and below otherwise all systems reviewed and negative. Past medical history: As per history of present illness and as reviewed below otherwise noncontributory. Surgical history: As per history of present illness and as reviewed below otherwise noncontributory. Social history: See social history for further information Family history: As per history of present illness and as reviewed below otherwise noncontributory. Physical exam: General: Well-developed and well-nourished 52-year-old male. Alert and oriented. Nontoxic appearing and in no acute distress. HEENT: Atraumatic, normocephalic, pupils equal and reactive bilaterally, negative for conjunctival pallor or scleral icterus, mucous membranes moist, TMs normal bilaterally, throat clear, neck supple, nontender, trachea midline. No drooling or trismus noted. No meningeal signs. No hot potato voice noted. Lungs: Clear to auscultation, breath sounds equal bilaterally, chest nontender. Heart: S1S2, regular rate and rhythm without overt murmur Abdomen: Soft, nondistended, nontender. Negative for masses or hepatosplenomegaly. Negative for costovertebral tenderness. Pelvis: Stable nontender. Genitourinary: Deferred. Rectal: Deferred. Skin: Intact, warm, dry. No lesions or rashes noted. Extremities: Atraumatic, moves all extremities per self with difficulty or deficits. Soft tissue swelling noted to the left lateral ankle with mild erythema. Strong pedal pulse and pretibial pulse noted. Cap refill less than 3 seconds. He is negative for cords or calf pain. Neurovascular unremarkable. Neuro: Awake, alert, oriented. Cranial nerves II through XII unremarkable. Cerebellum unremarkable. Motor and sensory unremarkable throughout. Exam nonfocal. Notes: Patient states that he did have an appointment earlier this week but failed to make the appointment. He states he ran out of his rescue medications for gout. Patient does have an elevated WBC. We discussed doing a course of antibiotics for possible cellulitis. He declines, as he is sure this is his gout. Encouraged him to follow up with his PCP for close follow up and management. Supportive care measures were reviewed and discussed. Voices understanding and is agreeable to plan of care. Denies any further questions or concerns at this time. Diagnostics: CBC, Uric Acid Therapeutics: Toradol Prescription: Indomethacin Spivey (#10) Colchicine Impression: Gout, Left Ankle Plan: 1. Rest and elevate the extremity as able. 2. Take your medications as directed. 3. Please call and reschedule your appointment with your primary care provider as we discussed. Return to the ED as needed and as discussed. Definitive disposition and diagnosis as appropriate pending reevaluation and review of above. left foot Pain Score (Numeric/FACES): 9 - Related Data Allergies Allergy/AdvReac Type Severity Reaction Status Date / Time No Known Allergies Allergy Verified 05/12/18 18:56 Home Meds: Home Meds Aspirin 81 mg PO DAILY 04/19/16 [History] Enoxaparin [Lovenox] 100 mg SUBCUT Q12HR #60 syringe 05/31/16 [Rx] LORazepam [Ativan] 1 mg PO Q6H PRN #60 tablet 05/31/16 [Rx] Furosemide [Lasix] 40 mg PO DAILY 07/15/16 [History] Spironolactone [Aldactone] 1.5 tab PO DAILY 07/15/16 [History] Diclofenac Potassium [Zipsor] 0 mg PO ASDIRECTED 06/05/18 [History] Escitalopram Oxalate [Lexapro] 0 mg PO ASDIRECTED 06/05/18 [History] Metoprolol Tartrate [Lopressor] 100 mg PO BID 06/05/18 [History] Past Medical History HEENT History: Reports: Impaired Vision Other HEENT History: wears glasses Cardiovascular History: Reports: Afib, Blood Clots/VTE/DVT, Hypertension Other Cardiovascular History: DVT left leg x2 with SOB (probable PE) in april , on Lovenox. Cardiomyopathy CHF (NYHA II) Respiratory History: Reports: Sleep Apnea Other Respiratory History: thinks he has Asthma Gastrointestinal History: Reports: None Genitourinary History: Reports: None Musculoskeletal History: Reports: Gout Other Musculoskeletal History: recent sprained ankle Neurological History: Reports: Other (See Below) Other Neuro History: facial fx Psychiatric History: Reports: Addiction, Anxiety Other Psychiatric History: several bouts of detox for substance abuse Endocrine/Metabolic History: Reports: None Hematologic History: Reports: Anticoagulation Therapy Immunologic History: Reports: None Oncologic (Cancer) History: Reports: None Dermatologic History: Reports: None - Infectious Disease History Infectious Disease History: Reports: Chicken Pox - Past Surgical History Other HEENT Surgeries/Procedures: facial reconstructive surgery 2006 (ORIF after zygomatic bone fx. in accident. Cardiovascular Surgical History: Reports: Other (See Below) Other Cardiovascular Surgeries/Procedures: DVT surgery GI Surgical History: Reports: Other (See Below) Other GI Surgeries/Procedures: Lesion on colon Male Surgical History: Reports: None Endocrine Surgical History: Reports: None Oncologic Surgical History: Reports: None Dermatological Surgical History: Reports: None Social & Family History - Family History Family Medical History: Noncontributory Other GI Family History: sister with partial gastrectomy for cancer - Caffeine Use Caffeine Use: Reports: None - Living Situation & Occupation Living situation: Reports: Other Occupation: Employed Review of Systems - Review of Systems Review Of Systems: ROS reveals no pertinent complaints other than HPI. ED EXAM, GENERAL - Physical Exam Exam: See Below (See dictation) Course - Vital Signs Last Recorded V/S: Last Vital Signs Temp 98.8 F 06/05/18 19:45 Pulse 101 H 06/05/18 19:45 Resp 18 06/05/18 19:45 BP 113/77 06/05/18 19:45 Pulse Ox 95 06/05/18 19:45 - Orders/Labs/Meds Labs: Laboratory Tests 06/05/18 06/05/18 Range/Units 20:08 20:08 WBC 15.04 H (4.0-11.0) K/uL RBC 3.88 L (4.50-5.90) M/uL Hgb 12.3 L (13.0-17.0) g/dL Hct 35.1 L (38.0-50.0) % MCV 90.5 (80.0-98.0) fL MCH 31.7 (27.0-32.0) pg MCHC 35.0 (31.0-37.0) g/dL RDW Std Deviation 46.2 (28.0-62.0) fl RDW Coeff of Jamel 14 (11.0-15.0) % Plt Count 203 (150-400) K/uL MPV 9.20 (7.40-12.00) fL Neut % (Auto) 72.9 (48.0-80.0) % Lymph % (Auto) 13.2 L (16.0-40.0) % [place] % (Auto) 13.5 (0.0-15.0) % Eos % (Auto) 0.3 (0.0-7.0) % Baso % (Auto) 0.1 (0.0-1.5) % Neut # (Auto) 11.0 H (1.4-5.7) K/uL Lymph # (Auto) 2.0 (0.6-2.4) K/uL [place] # (Auto) 2.0 H (0.0-0.8) K/uL Eos # (Auto) 0.0 (0.0-0.7) K/uL Baso # (Auto) 0.0 (0.0-0.1) K/uL Nucleated RBC % 0.0 /100WBC Nucleated RBCs # 0 K/uL Uric Acid 11.8 H (2.6-7.2) mg/dL Meds: Medications Discontinued Medications Generic Name Dose Route Start Last Admin Trade Name Freq PRN Reason Stop Dose Admin Sodium Chloride 1,000 mls @ 999 mls/hr 06/05/18 20:00 06/05/18 20:14 Normal Saline IV 06/05/18 21:00 Not Given STAT ONE Ketorolac Tromethamine 30 mg 06/05/18 20:03 06/05/18 20:14 Toradol IVPUSH 06/05/18 20:04 30 mg ONETIME ONE Administration Departure - Departure Time of Disposition: 20:15 Disposition: Home, Self-Care 01 Clinical Impression: Gout Qualifiers: Gout site: ankle Gout etiology: unspecified cause Chronicity: chronic Laterality: left Qualified Code(s): 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 This information is to outline your options for follow-up care. We provide all patients seen in our emergency department with a follow-up referral. The need for follow-up, as well as the timing and circumstances, are variable depending upon the specifics of your emergency department visit. If you don't have a primary care physician on staff, we will provide you with a referral. We always advise you to contact your personal physician following an emergency department visit to inform them of the circumstance of the visit and for follow-up with them and/or the need for any referrals to a consulting specialist. The emergency department will also refer you to a specialist when appropriate. This referral assures that you have the opportunity for follow-up care with a specialist. All of these measure are taken in an effort to provide you with optimal care, which includes your follow-up. Under all circumstances we always encourage you to contact your private physician who remains a resource for coordinating your care. When calling for follow-up care, please make the office aware that this follow-up is from your recent emergency room visit. If for any reason you are refused follow-up, please contact the [facility] Emergency Department at and asked to speak to the emergency department charge nurse. [facility] [address] [place] [address] [id number] [address] [id number] 1. Rest and elevate the extremity as able. 2. Take your medications as directed. 3. Please call and reschedule your appointment with your primary care provider as we discussed. Return to the ED as needed and as discussed.
[2018-06-05] MEDS ORDERED: Ketorolac 30 MG/ML SDV IVPUSH ONE (20:03)
== END 2018-06-05 21:20 | disposition home or self-care (01) ==
LOC: MW.ED 19:23
DX: M1A.0720 Idiopathic chronic gout, left ankle and foot, without tophus (tophi) (principal); I10 Essential (primary) hypertension; F41.9 Anxiety disorder, unspecified; Z79.01 Long term (current) use of anticoagulants; Z79.82 Long term (current) use of aspirin; Z79.899 Other long term (current) drug therapy
CPT/HCPCS: 36415; 84550; 85025; 96374; 99284; J1885; 99283